=== PATIENT | female | born 1945 | race Caucasian/White ===

== ENCOUNTER 2018-09-30 11:36 | Inpatient (IN) | payer OTHER ==
[~2018-09-30] VITALS: Ht 157.5 cm; Wt 76.2 kg
[~2018-09-30 11:36] MED LIST: AMLODIPINE BESY10 MG; ASPIRIN EC81 M1; CALCIUM 500 +1 EAC5; CLONAZEPAM 0.50.5 M1 PO; FISH OIL 1,0001 EAC7; FOLIC ACID 40400 MC1; HYDROCHLOROTHIA25 M1; LISINOPRIL20 MG; MOBIC15 MG; OXYCONTIN CR 2020 M1; SERTRALINE HCL100 MG PO; SIMVASTATIN40 MG
[2018-09-30] MEDS ORDERED: ATORVASTATIN CA40 MG PO (12:01)
[2018-09-30] MEDS ORDERED: VITAMIN D1000 UNI1 PO (12:02)
[2018-09-30] MEDS ORDERED: VITAMIN B-12500 MCG PO (12:03)
[2018-09-30] MEDS ORDERED: ELIQUIS5 MG PO (12:03)
[2018-09-30] MEDS ORDERED: CILOSTAZOL 100100 M1 PO (12:03)
[2018-09-30] MEDS ORDERED: DILTIAZEM HCL90 MG PO (12:04)
[2018-09-30] MEDS ORDERED: NEURONTIN 400400 M1 PO (12:05)
[2018-09-30] MEDS ORDERED: COLACE100 MG PO (12:05)
[2018-09-30] MEDS ORDERED: FOLIC ACID 40400 MC1 PO (12:05)
[2018-09-30] MEDS ORDERED: COZAAR 25 MG TA25 M2 PO (12:06)
[2018-09-30] MEDS ORDERED: DEMADEX20 MG PO (12:06)
[2018-09-30] MEDS ORDERED: POTASSIUM20 PO (12:06)
[2018-09-30] MEDS ORDERED: OXYBUTYNIN 5 MG5 M2 PO (12:06)
[2018-09-30] MEDS ORDERED: TRAMADOL 50 MG50 MG PO (12:07)
[2018-09-30 12:42] LABS: ABSOLUTE BASOPHILS 0.1 thou/uL (0.0-0.2); ABSOLUTE EOSINOPHILS 0.2 thou/uL (0.0-0.7); ABSOLUTE LYMPHOCYTES 1.2 thou/uL (0.8-5.3); ABSOLUTE MONOCYTES 0.9 thou/uL (0.0-1.2); ABSOLUTE NEUTROPHILS 7.3 thou/uL (1.6-8.1); BASOPHILS 0.7 %; EOSINOPHILS 2.5 %; HEMATOCRIT 31.7 % (37.0-47.0); HEMOGLOBIN 10.2 gm/dL (12.0-15.0); LYMPHOCYTES 12.2 %; MCH 28.2 pg (26.0-34.0); MCHC 32.3 g/dL (28.0-37.0); MCV 87.1 fL (80.0-100.0); MONOCYTES 8.8 %; MPV 7.4 fl. (7.2-11.1); NUCLEATED RBCS 0 /100WBC; PLATELET COUNT* 432 thou/uL (150-400); POLYS 75.8 %; RBC 3.64 mil/uL (4.20-5.00); RDW-CV 15.8 % (10.5-14.5); WBC 9.7 thou/uL (4.0-11.0)
[2018-09-30 13:04] LABS: APTT 30.9 Seconds (25.0-31.3); INR 1.1; PROTIME 11.4 Seconds (9.20-11.50)
[2018-09-30 13:21] LABS: ANION GAP 12 mmol/L (7-16); BUN 12 mg/dL (7-18); CALCIUM 8.8 mg/dL (8.5-10.1); CHLORIDE 103 mmol/L (98-107); CO2 26 mmol/L (21-32); GLUCOSE 107 mg/dL (70-99); POTASSIUM 3.3 mmol/L (3.5-5.1); SODIUM 141 mmol/L (136-145)
[2018-09-30 13:25] LABS: ALBUMIN 3.8 g/dL (3.4-5.0); ALKALINE PHOSPHATASE 137 U/L (46-116); LIPASE 50 U/L (73-393); NT-PRO BRAIN NAT PEPTIDE 324 pg/mL (<300); SGOT 18 U/L (15-37); SGPT 18 U/L (30-65); TOTAL BILIRUBIN 0.6 mg/dL (<0.1-1.0); TOTAL PROTEIN 7.2 g/dL (6.4-8.2); TROPONIN-I LEVEL <0.06 ng/mL (<0.06)
[2018-09-30 18:26] VITALS: BP 142/46
[2018-09-30 19:10] LABS: URIC ACID* 6.9 mg/dL (2.6-7.2)
[2018-09-30 20:00] VITALS: BP 119/35
[2018-10-01] VITALS: BP 156/63
[2018-10-01 04:00] VITALS: BP 146/62
[2018-10-01 05:38] LABS: HEMATOCRIT 33.9 % (37.0-47.0); HEMOGLOBIN 10.8 gm/dL (12.0-15.0); MCH 27.8 pg (26.0-34.0); MCHC 31.7 g/dL (28.0-37.0); MCV 87.6 fL (80.0-100.0); MPV 8.2 fl. (7.2-11.1); NUCLEATED RBCS 0 /100WBC; PLATELET COUNT* 503 thou/uL (150-400); RBC 3.88 mil/uL (4.20-5.00)
[2018-10-01 05:54] LABS: ANION GAP 14 mmol/L (7-16); BUN 15 mg/dL (7-18); CALCIUM 8.9 mg/dL (8.5-10.1); CHLORIDE 103 mmol/L (98-107); CO2 25 mmol/L (21-32); CREATININE 0.9 mg/dL (0.6-1.3); GLUCOSE 205 mg/dL (70-99); MAGNESIUM 2.1 mg/dL (1.8-2.4); POTASSIUM 3.2 mmol/L (3.5-5.1); SODIUM 142 mmol/L (136-145); TROPONIN-I LEVEL <0.06 ng/mL (<0.06)
[2018-10-01 06:33] LABS: ABSOLUTE LYMPHOCYTES 1.2 thou/uL (0.8-5.3); ABSOLUTE MONOCYTES 0.1 thou/uL (0.0-1.2); ABSOLUTE NEUTROPHILS 11.7 thou/uL (1.6-8.1); ANISOCYTOSIS 1+; PLATELET ESTIMATE INCREASED; POIKILOCYTOSIS 1+; POLYCHROMASIA 1+
[2018-10-01 07:04] LABS: BE -2.3 mmol/L (-2 to +3); HCO3 21.4 mmol/L (22.0-26.0)
[2018-10-01 08:30] VITALS: BP 143/100
--- NOTE | 2018-10-01 11:20 | EKG ---
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: : 1945 Requested By: Nay Medrano Order Number: [id number] MD: Carlos Brown Measurements Intervals [place] Rate: 70 P: 69 MD: 162 QRS: -11 QRSD: 146 T: 101 QT: 472 QTc: 510 Interpretive Statements Sinus rhythm Paired ventricular premature complexes IVCD, consider atypical LBBB Baseline wander in lead(s) V5 Compared to ECG 09/10/2008 13:04:00 Ventricular premature complex(es) now present Atrial abnormality no longer present ST (T wave) deviation no longer present Electronically Signed On 10-01-2018 11:20:26 PRODUCT ENGINEER by Carlos Brown [email or web address] <ELECTRONICALLY SIGNED> By: Carlos Brown MD, FACC 10/01/18 1120 1153 1153 Carlos Brown MD, FACC /EPI
--- NOTE | 2018-10-01 11:20 | EKG ---
[place] [address] ELECTROCARDIOGRAM REPORT Name: JOE MORALES Room: [address] ADM IN M.R.#: [id number] Admission: 09/30/18 Attend Phys: Yefri Berry Discharge: Date of : 41 Report #: [id number] THIS REPORT FOR: //name// [facility] ED Test Date: 2018-09-30 Test Time: 12:01:53 Pat Name: JOE MORALES Department: Room: [facility] Gender: F Inverted Block Operator: : 1945 Requested By: Nay Medrano Order Number: [id number] Reading MD: Carlos Brown Measurements Intervals [place] Rate: 67 P: 81 MS: 153 QRS: 0 QRSD: 148 T: 77 QT: 479 QTc: 506 Interpretive Statements Sinus rhythm Nonspecific intraventricular conduction delay Anterior infarct, old Compared to ECG 09/10/2008 13:04:00 Intraventricular conduction delay now present Myocardial infarct finding now present Atrial abnormality no longer present ST (T wave) deviation no longer present Electronically Signed On 10-01-2018 11:20:30 DERMATOPATHOLOGIST by Carlos Brown [email or web address] <ELECTRONICALLY SIGNED> By: Carlos Brown MD, FACC 10/01/18 1120 1201 1201 Carlos Brown MD, FACC /EPI
--- NOTE | 2018-10-01 11:21 | EKG ---
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 : 1945 Requested By: Nay Medrano Order Number: [id number] MD: Carlos Brown Measurements Intervals [place] Rate: 73 P: 97 OR: 169 QRS: 4 QRSD: 147 T: 158 QT: 453 QTc: 500 Interpretive Statements Sinus tachycardia Multiform ventricular premature complexes IVCD, consider atypical LBBB Artifact in lead(s) II,aVR,aVF,V1,V3,V4,V5,V6 and baseline wander in lead(s) V3 Compared to ECG 09/10/2008 13:04:00 Ventricular premature complex(es) now present Sinus rhythm no longer present Atrial abnormality no longer present ST (T wave) deviation no longer present Electronically Signed On 10-01-2018 11:21:10 DISTANCE EDUCATION DIRECTOR by Carlos Brown [email or web address] <ELECTRONICALLY SIGNED> By: Carlos Brown MD, [facility] 10/01/18 1121 1523 1523 Carlos Brown MD, [facility] /EPI
--- NOTE | 2018-10-01 11:22 | EKG ---
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: WOO : 1945 Requested By: Becky Vinson Order Number: [id number] Reading MD: Carlos Brown Measurements Intervals [place] Rate: 130 P: MO: QRS: 26 QRSD: 146 T: 208 QT: 355 QTc: 522 Interpretive Statements Atrial fibrillation LVH with secondary repolarization abnormality Anterior infarct, acute (LAD) Prolonged QT interval Compared to ECG 09/10/2008 13:04:00 Left ventricular hypertrophy now present Early repolarization now present Myocardial infarct finding now present Prolonged QT interval now present Sinus rhythm no longer present Atrial abnormality no longer present ST (T wave) deviation no longer present Electronically Signed On 10-01-2018 11:22:02 PET CREMATORY WORKER by Carlos Brown [email or web address] <ELECTRONICALLY SIGNED> By: Carlos Brown MD, [facility] 10/01/18 1122 0429 0429 Carlos Brown MD, FACC /EPI
[2018-10-01 11:24] VITALS: BP 141/39
--- NOTE | 2018-10-01 14:28 | 2DMMODE ---
[place] [address] 2 D/M-MODE ECHOCARDIOGRAM Name: ANDREWJOE Room: [address] ADM IN [facility]#: [id number] Admission: 09/30/18 Attend Phys: Becky Vinson Discharge: Date of : 41 Date of Service: 10/01/18 1427 Report #: [id number] THIS REPORT FOR: //name// APPROVED REPORT Study performed: 10/01/2018 11:29:37 EXAM: Comprehensive 2D, Doppler, and color-flow Echocardiogram Patient Location: In-Patient Room #: [facility] Status: routine BSA: 1.85 HR: 81 bpm BP: 143/100 mmHg Rhythm: NSR Other Information Study Quality: Good Indications systolic heart failure 2D Dimensions IVSd: 13.95 (7-11mm) LVOT Diam: 19.20 (18-24mm) LVDd: 40.42 mm PWd: 9.64 (7-11mm) Ascending Ao: 31.91 (22-36mm) LVDs: 22.07 (25-40mm) Aortic Root: 26.80 mm Volumes Left Atrial Volume (Systole) LA ESV Index: 44.50 mL/m2 Aortic Valve AoV Peak Pako.: 2.37 m/s AO Peak Gr.: 22.44 mmHg LVOT Max P.74 mmHg AO Mean Gr.: 13.09 mmHg LVOT Mean P.14 mmHg LVOT Max V: 1.39 m/s AO V2 VTI: 48.85 cm LVOT Mean V: 0.94 m/s JONATHAN (VTI): 2.03 cm2 LVOT V1 VTI: 34.19 cm Mitral Valve MV Mean Gr.: 8.47 mmHg E/A Ratio: 0.96 MV Decel. Time: 431.75 ms MV E Max Pako.: 1.88 m/[place] [address] 2 D/M-MODE ECHOCARDIOGRAM Name: DANIELLE MORALESE Room: [address] IN .R.#: [id number] Admission: 09/30/18 Attend Phys: Becky Vinson Discharge: Date of : 41 Date of Service: 10/01/18 1427 Report #: [id number] MV PHT: 125.21 ms MVA (PHT): 1.76 cm2 TDI E/Lateral E': 23.50 E/Medial E': 26.86 Medial E' Pako.: 0.07 m/s Lateral E' Pako.: 0.08 m/s Pulmonary Valve PV Peak Pako.: 1.63 m/s PV Peak Gr.: 10.57 mmHg Tricuspid Valve RAP Estimate: 5.00 mmHg TR Peak Gr.: 49.98 mmHg RVSP: 55.00 mmHg PA Pressure: 55.00 mmHg Left Ventricle The left ventricle is normal size. There is normal LV segmental wall motion. Mild concentric left ventricular hypertrophy. Left ventricular systolic function is normal. The left ventricular ejection fraction is within the normal range. LVEF is 60-65%. Grade I - abnormal relaxation pattern. Right Ventricle The right ventricle is normal size. The right ventricular systolic function is normal. Atria Left atrium is severely dilated. The right atrium size is normal. Aortic Valve Mild aortic valve sclerosis. Trace aortic regurgitation. There is no aortic valvular stenosis. Mitral Valve Mitral valve leaflets are thickened. Mitral valve leaflets have restricted excursion. Mild mitral regurgitation. Moderate mitral stenosis.mean gradient 8.5mmHg Tricuspid Valve The tricuspid valve is normal in structure. Mild tricuspid regurgitation. Moderate pulmonary hypertension. Pulmonic Valve The pulmonary valve is normal in structure[place] [address] 2 D/M-MODE ECHOCARDIOGRAM Name: JOE MORALES Room: [address] IN ..#: [id number] Admission: 09/30/18 Attend Phys: Becky Vinson Discharge: Date of : 41 Date of Service: 10/01/18 1427 Report #: [id number] regurgitation. Great Vessels The aortic root is normal in size. IVC is normal in size and collapses >50% with inspiration. Pericardium There is no pericardial effusion. <Conclusion> Mild concentric left ventricular hypertrophy. LVEF is 60-65%. There is normal LV segmental wall motion. Left atrium is severely dilated. Mitral valve leaflets are thickened. Mitral valve leaflets have restricted excursion. Moderate mitral stenosis.mean gradient 8.5mmHg Mild mitral regurgitation. Mild aortic valve sclerosis. There is no aortic valvular stenosis. <ELECTRONICALLY SIGNED> By: Carlos Brown MD, FACC 10/01/18 1427 1427 142 Carlos Brown MD, FACC /INF
[2018-10-01 16:00] VITALS: BP 122/68
[2018-10-01 19:30] VITALS: BP 145/56
[2018-10-02] VITALS: BP 121/42
[2018-10-02 02:06] LABS: GLYCOHEMOGLOBIN (HGB A1C) 5.8 % (4.8-5.6)
[2018-10-02 04:00] VITALS: BP 122/51
--- NOTE | 2018-10-02 06:49 | CON ---
[address] [address] CONSULTATION Name: JOE MORALES Room: [address] ADM IN M.R.#: [id number] Admission: 09/30/18 Attend Phys: Yefri Berry Discharge: Date of : 41 Report #: [id number] THIS REPORT FOR: //name// CC: Becky Vinson [facility] DATE OF SERVICE: 10/01/2018 PRIMARY CARE PHYSICIAN: Becky Vinson MD CHIEF COMPLAINT: Weakness, fatigue, a-fib, shortness of breath. HISTORY OF PRESENT ILLNESS: The patient is a 73-year-old woman with multiple medical problems, presents with cough, weakness, fatigue, increasing dyspnea over the last several weeks. She has history of prior coronary artery disease and atrial fibrillation treated at [facility]. We have obtained some records. Clinically, she is without significant chest pain or pressure and initial cardiac troponin levels are unremarkable. She has been going in and out of atrial fibrillation with controlled ventricular responses on an IV Cardizem drip. Most recently, she has seen a field research associate at [facility] and her Cardizem apparently was increased to 360 mg daily. She has been anticoagulated with Eliquis for several months, she was diagnosed in 2016. Postoperatively, she had complications following back surgery including an [facility] and diagnosis of atrial fibrillation. Her LV function status is a severe LV function assessment is pending. Records are not available and her echocardiogram has not yet been performed. She had a CT scan of her chest in regards to her shortness of breath, which was negative for pulmonary embolus. She has been compliant with her anticoagulation, but admits that her diet has been fairly poor over the last several days. PAST MEDICAL HISTORY: In 2016, she was diagnosed with coronary artery disease and congestive heart failure and had a non-STEMI. Apparently, she was revascularized. Records are pending from this. She has hyperlipidemia, hypertension, atrial fibrillation, which is paroxysmal. Peripheral vascular disease. She has a history of carotid stenosis in the moderate range in the 50%-75% on the right side and also peripheral vascular disease in her iliac arteries, also in the moderate range. She has been placed on Pletal and is followed by vascular surgery at [facility] for this. [place] [address] CONSULTATION Name: JOE MORALES Room: [address] IN [facility]#: [id number] Admission: 09/30/18 Attend Phys: Yefri Berry Discharge: Date of : 41 Report #: [id number] of TIA. SOCIAL HISTORY: She is a former smoker of more than 2 packs per day, but has been off cigarettes for more than a year. HOME MEDICATIONS: Include the following: Clonazepam, sertraline, aspirin 81 mg daily, atorvastatin 40 mg daily, apixaban 5 mg p.o. b.i.d., Pletal 100 mg p.o. b.i.d., Cardizem 360 mg daily, oxybutynin, potassium chloride 20 mEq daily, torsemide 20 mg p.o. b.i.d., losartan 25 mg p.o. b.i.d. and tramadol. REVIEW OF SYSTEMS: GENERAL: No fevers or chills. Positive weakness. PULMONARY: Positive cough, positive shortness of breath. CARDIOVASCULAR: Positive shortness of breath with activity. Positive orthopnea, no PND, no edema. GENITOURINARY: No dysuria or hematuria. GASTROINTESTINAL: No abdominal pain. No hematemesis or melena. SKIN: No rashes. NEUROLOGIC: Denies headaches, blurry vision or seizures, numbness or visual changes. PHYSICAL EXAMINATION: VITAL SIGNS: Blood pressure is 197/76, pulse is 125. O2 sat on 4 L is 95%. GENERAL: This is an elderly female. She is a poor historian. She is in no apparent distress. HEENT: Eyes: EOMs intact. No facial asymmetry. NECK: Supple. No jugular venous distention. There is a faint right-sided bruit. CARDIOVASCULAR: Regular with faint systolic murmur. There is no rub or gallop. LUNGS: Coarse breath sounds bilaterally in the bases. ABDOMEN: Nontender, nondistended. EXTREMITIES: No peripheral edema. NEUROLOGY: There are no focal deficits. PULSES: Radial pulses normal. Dorsalis pedis pulses are reduced, +1 bilaterally. DIAGNOSTIC DATA: Electrocardiograms demonstrate atrial fibrillation, controlled ventricular response in the 70s. There is a bundle-branch block, conduction delay and intermittently, she has been in atrial fibrillation with a controlled ventricular response. Underlying rhythm though on presentation was sinus rhythm. LABORATORY DATA: Hemoglobin is 10.8, white blood count is 13.0, platelet count is 503,000. Sodium is 142, potassium is 3.2, chloride is 103, CO2 is 25, BUN is 15, creatinine is 0.9. Troponin-I is 0.06. BNP is 880, [place]R [place] 1.1. [place] [address] CONSULTATION Name: JOE MORALES Room: [address] IN [facility]#: [id number] Admission: 09/30/18 Attend Phys: Yefri Berry Discharge: Date of : 41 Report #: [id number] IMAGING DATA: CTA of the chest showed no evidence of pulmonary embolus, increasing thickening and ground glass opacities, increasing pleural effusion consistent with CHF. No evidence of acute pulmonary embolism. IMPRESSION: 1. Acute respiratory insufficiency. I think this is a combination of chronic obstructive pulmonary disease exacerbation, possibly with bronchitis along with congestive heart failure exacerbation, probably of a diastolic etiology based on her BNP level. I would continue with diuresis. She will need more aggressive blood pressure control. 2. Acute congestive heart failure as noted above. Continue diuretics and blood pressure management. 3. Paroxysmal atrial fibrillation. We will try to obtain records from [facility]. An echocardiogram is pending. If her left ventricular function is normal, she may be a candidate for sotalol, as she had significant complaints of palpitation type symptoms, likely her recurrence of atrial fibrillation as an outpatient, although her heart rates are fairly well controlled, currently in a sinus rhythm on IV Cardizem. 4. Oral anticoagulation. I would continue with Eliquis, as she has an elevated CHADS-VASc score of 5+ given her vascular disease, coronary history, prior transient ischemic attack etc. 5. Chronic obstructive pulmonary disease exacerbation. We will treat this aggressively. 6. Coronary artery disease. Her cardiac troponin level is normal and I do not think that she is having an active angina. I will continue medical therapy. We will obtain records from [facility]. <ELECTRONICALLY SIGNED> By: Noble Mar MD, FACC 10/02/18 0649 1000 [id number] Brown MD, FACC /nt
--- NOTE | 2018-10-02 07:43 | CON ---
[address] [address] CONSULTATION Name: DAVID MORALESANNE Room: [address] ADM IN M.R.#: [id number] Admission: 09/30/18 Attend Phys: Nicola Berry Discharge: Date of : 41 Report #: [id number] THIS REPORT FOR: //name// CC: Becky Whitlockriley Hernandeznicola REASON FOR CONSULTATION: Respiratory failure. HISTORY OF PRESENT ILLNESS: This is a 73-year-old female patient with history of smoking for almost 40 years, although she quit a while ago. She saw a correction officer penitentiary couple of years ago after she had been through long hospitalization. At one point, she was on inhalers, but now she is not on any inhaler or oxygen. We have PFTs at [facility] done in April 2016 showed evidence of COPD in the range of dntllnfb-bt-relgia obstructive defect. The patient also had history of congestive heart failure. She presented to the hospital with a month history of progressive shortness of breath mostly with exertion associated with weakness and she has noticed that this has been progressive over the course of the month. She noticed also some increasing lower extremity edema. Her daughter is a nurse and reported that she has history of orthopnea, although typically she does sleep lying flat, but she noticed any time she tries to lay flat that she is more short of breath than her baseline. She has cough, which is nonproductive, not producing any sputum. She denied any sick contact. She denied any chest pain, fever, chills, night sweats, abdominal pain. She has history of coronary artery disease and actually she follows a proposal review analyst at [facility]. In addition to that, she has history of pulmonary nodule that had been monitored since 2016 per her primary care doctor and proposal review analyst according to the patient and things have been stable since then. It was noted overnight she was on BiPAP; however, this morning, she is on 4 liter oxygen. She looks uncomfortable and reported some improvement. The edema in the lower extremities has improved. ALLERGIES: MEPERIDINE, MORPHINE, OPIOIDS, SULFA. HOME MEDICATIONS: She is on clonazepam, sertraline, aspirin, atorvastatin. She is on Eliquis for AFib. She is on Colace, gabapentin, folic acid, tramadol, losartan and Demadex. PAST MEDICAL HISTORY: She had history of hypertension, AFib on anticoagulation. She has history of arthritis, history of anxiety, history of congestive heart failure, coronary artery disease, back problems, TIA x 2, depression. Also, there is COPD given history of smoking and abnormal PFT back in 2016 at [facility], although the patient was not aware of such diagnosis. PAST SURGICAL HISTORY: Knee surgery on the left, , ovarian cyst removal [place] [address] CONSULTATION Name: JOE MORALES Room: [address] ADM IN M.R.#: [id number] Admission: 09/30/18 Attend Phys: Nicola Berry Discharge: Date of : 41 Report #: [id number] SOCIAL HISTORY: He smoked for 40 years and quit a few years ago. Does not drink alcohol excessively, does not abuse drugs. REVIEW OF SYSTEMS: Twelve systems reviewed with the patient and negative other than those mentioned above. Pertinent positive mentioned in the history. PHYSICAL EXAMINATION: VITAL SIGNS: On examination, during my visit she was on 4 L oxygen with saturation more than 90%, blood pressure 140/48, pulse rate of 71, temperature 37.2. GENERAL: Sitting in a chair, speaking in full sentences, no distress. Awake, alert. HEAD: Normocephalic, atraumatic. EYES: Pupils reactive to light. ORAL CAVITY: Moist mucous membrane. Mallampati of 2. NECK: Supple. No palpable lymph nodes. No palpable thyroid. Trachea is central. External ear looks healthy and normal. Nasal cavity, patent passages. CHEST: Diminished air movement bilaterally. No definite wheezes. HEART: S1, S2, no murmur. ABDOMEN: Benign, soft, lax, nontender, positive bowel sounds. EXTREMITIES: Lower extremity, trace edema, no calf tenderness. SKIN: Normal for age and race, no rash. LYMPHATICS: No palpable lymph node. PSYCHIATRIC: Mood and affect appropriate. Good insight and judgment. NEUROLOGIC: Awake, alert. Moving 4 extremities spontaneously. LYMPHATICS: No palpable lymph nodes. LABORATORY DATA: White blood count 9.7, hemoglobin 10.2, platelet 432. ABG 7.43/33/70. That was done on BiPAP. Her INR is 1.1. D-dimer was elevated. Her potassium was 3.2 with creatinine of 0.9. Her BNP also was elevated at 880. Respiratory virus panel is pending. Upon hospitalization, the initial chest x-ray did not show major abnormality, but there is some obliteration of the costophrenic angle; however, there is evidence of edema increased on the repeat chest x-ray. She had a CT of the chest that did not show pulmonary embolus, but showed cardiomegaly with signs of vascular congestion and ground glass infiltrate. Her mediastinal hilar lymphadenopathy reported to be slightly prominent compared to 2016. However, the patient told me she has been monitored with repeat CT scan as an outpatient. IMPRESSION: 1. Acute hypoxic respiratory failure. 2. Congestive heart failure. 3. Fluid overload. 4. Pulmonary infiltrate. 5. Chronic obstructive [place] [address] CONSULTATION Name: JOE MORALES Room: [address] ADM IN M.R.#: [id number] Admission: 09/30/18 Attend Phys: Nicola Berry Discharge: Date of : 41 Report #: [id number] At this point, the patient is being diuresed and she is already reporting improvement in the breathing and the lower extremity edema. I would continue diuresis. She does not like bronchodilators because it makes her "jittery," so we will keep it p.r.n. However, she agreed to be started on p.o. steroids, which I will do. With the pulmonary infiltrates, we cannot rule out pneumonia. I agree with antibiotics at this point. Infectious Disease was consulted. I suspect her respiratory failure is multifactorial, mostly fluid overload and congestive heart failure, but infectious process could not be ruled out. Also, she has COPD based on the previous PFTs. Regarding mediastinal lymphadenopathy, the patient told me she had repeat CT scan done by her primary care doctor and proposal review analyst and she has been told that "the nodules in her lungs had been stable." I do not have those reports of the CTs between 2016 and now; however, we would recommend continued surveillance. Thank you for the consult. We will follow along with you. <ELECTRONICALLY SIGNED> By: Angela Armstrong MD 10/02/18 0743 1230 0200Devin Lindsay MD /nt
[2018-10-02 07:49] VITALS: BP 149/48
[2018-10-02 11:30] VITALS: BP 134/43
--- NOTE | 2018-10-02 11:51 | CON ---
[address] [address] CONSULTATION Name: MORALESJOE Room: [address] ADM IN M.R.#: [id number] Admission: 09/30/18 Attend Phys: Yefri eBrry Discharge: Date of : 41 Report #: [id number] THIS REPORT FOR: //name// CC: Becky Vinson [facility] DATE OF SERVICE: 10/01/2018 INFECTIOUS DISEASE CONSULTATION ATTENDING PHYSICIAN: Becky Vinson MD. REASON FOR EVALUATION: Pneumonitis, perhaps multifactorial. HISTORY OF PRESENT ILLNESS: Chart reviewed, patient examined. This is a 73-year-old with known history of coronary artery disease, also has pulmonary hypertension. Over the course of the last 6-8 weeks, she had developed progressive dyspnea, which accelerated over the course of the last few days with evidence of decreased exercise tolerance, became very dyspneic, had to stop and rest after just a short distance, had been evaluated as an outpatient, some question whether she received antibiotic since she does have history of bronchitis. However, because of her deterioration, she was admitted. Imaging suggested bilateral infiltrates, possible congestive heart failure/pulmonary edema, could not exclude pneumonitis. On questioning, she denies any fevers or chills. She had one night of sweats. Appetite has been good. Actually she has gained weight in part attributes to retaining fluid. She has not had significant gastrointestinal-related complaints including nausea, vomiting or diarrhea. She noted some lower extremity edema. She was empirically started on levofloxacin as well as diuretics. Clinically, she has improved over the course of the last 12 hours since her admission. ALLERGIES: SULFA, OPIOIDS, MORPHINE, BACTRIM, MEPERIDINE. CURRENT MEDICATIONS: Include diphenhydramine, levofloxacin 500 IV daily, diltiazem, oxybutynin, gabapentin, cilostazol, apixaban, multivitamin, ipratropium and albuterol inhaler, furosemide, potassium, diltiazem, cyanocobalamin, cholecalciferol, atorvastatin, aspirin, sertraline, tramadol, clonidine. PAST MEDICAL HISTORY: As described above hypertension, history of coronary artery disease, congestive heart failure with cardiomyopathy, anxiety, depression, arthritis, spinal fusion, peripheral vascular disease, bladder stimulator. SOCIAL HISTORY: Former smoker. No ethanol, [place] [address] CONSULTATION Name: JOE MORALES Room: [address] IN [facility].#: [id number] Admission: 09/30/18 Attend Phys: Yefri Berry Discharge: Date of : 41 Report #: [id number] FAMILY HISTORY: Noncontributory. REVIEW OF SYSTEMS: Denies any visual disturbances. Remainder of 10 point review of systems is unremarkable with the exception of the above. PHYSICAL EXAMINATION: GENERAL: She is alert, cooperative, appropriate, in mild distress. She is not encephalopathic, appears to be generally reasonably nourished. VITAL SIGNS: Temperature 98.1, pulse 125, respirations 16, blood pressure 197/76. SKIN: Warm, dry, no rashes. HEENT: No conjunctivitis. Oropharynx without lesion. NECK: Supple. LUNGS: Bilateral rales. HEART: Regular. She does have a soft systolic murmur. ABDOMEN: Soft, nontender, nondistended. There are no organomegalies. EXTREMITIES: Distal lower extremities, no edema. GENITOURINARY: Deferred. RECTAL: Deferred. LABORATORY DATA: Blood cultures sterile thus far. Most recent ABG from this morning, pH 7.430, pCO2 of 33.0, pO2 of 70.0 that was on FiO2 of 40% with the BiPAP. She is now on nasal cannula oxygen. CBC: White count of 13.0, H and H 10.8 and 33.9, platelets of 503 with neutrophilia; proBNP of 880. Chest x-ray, cardiomegaly with interstitial infiltrates and edema, small bilateral pleural effusions. Electrolytes: Sodium 142, potassium 3.2, chloride 103, bicarb 25, anion gap of 14, BUN and creatinine 15 and 0.9, estimated GFR of ____. TSH of 1.471. Ferritin of 12. Sed rate of 19. Uric acid of 6.9. LDH of 365. Lactic acid of 0.9. CTA chest PE protocol, no evidence of pulmonary embolus, septal thickening and ground glass opacities both lungs with effusions, cardiomegaly consistent with congestive heart failure and pulmonary edema, hilar mediastinal lymphadenopathy. Liver function tests otherwise unremarkable. Albumin of 3.8. Total protein 7.2. Estimated GFR of ____. PT of 11.4, INR of 1.1. ASSESSMENT: Pneumonitis, likely multifactorial. Certainly a component of vascular congestion can entirely exclude pneumonitis. I think it is reasonable to continue empiric antimicrobial therapy, Levaquin, is good agent for community-acquired pneumonia. The sputum is forthcoming at this point and see how she responds to this dual approach of diuresis as well. I think likely early transition to oral antibiotic would be reasonable. Did discuss with the patient and her family. <ELECTRONICALLY SIGNED> By: Micky Clemente MD 10/02/18 1151 [id number] [id number] Clemente MD /andrew
[2018-10-02 15:30] VITALS: BP 118/57
[2018-10-02 19:30] VITALS: BP 150/51
[2018-10-03] VITALS: BP 131/40
[2018-10-03 04:00] VITALS: BP 148/60
[2018-10-03 07:40] VITALS: BP 152/46
[2018-10-03] MEDS ORDERED: VENTOLIN HFA INH8 GM INH (08:26)
[2018-10-03] MEDS ORDERED: PREDNISONE 10 M10 MG PO (08:26)
[2018-10-03] MEDS ORDERED: LEVAQUIN 750 M750 MG PO (08:26)
[2018-10-03] MEDS ORDERED: SORINE 80 MG TA80 M1 PO (08:26)
[2018-10-03 12:00] VITALS: BP 105/34
[2018-10-03 16:49] VITALS: BP 126/60
--- NOTE | 2018-10-03 17:30 | EKG ---
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: : 1945 Requested By: Sandip Peter Order Number: [id number] Reading MD: Noble Mar Measurements Intervals [place] Rate: 45 P: 64 [place]: 178 QRS: 23 QRSD: 117 T: 114 QT: 519 QTc: 450 Interpretive Statements Sinus bradycardia Abnrm T, consider ischemia, anterolateral leads Compared to previous EKG Possible ischemia now present Atrial fibrillation no longer present Left ventricular hypertrophy no longer present Early repolarization no longer present Myocardial infarct finding no longer present Prolonged QT interval no longer present Electronically Signed On 10-03-2018 17:29:44 SELF STORAGE MANAGER by Noble Mar [email or web address] <ELECTRONICALLY SIGNED> By: Noble Mar MD, FACC 10/03/18 1729 0804 [id number] Noble Mar MD, FAC /EPI
[2018-10-03 20:30] VITALS: BP 169/57
[2018-10-04] VITALS: BP 154/52
[2018-10-04 04:00] VITALS: BP 146/42
[2018-10-04 05:12] LABS: ADENOVIRUS Negative (Negative); INFLUENZA A Negative (Negative); INFLUENZA B Negative (Negative); METAPNEUMOVIRUS Negative (Negative); PARAINFLUENZA 1 Negative (Negative); PARAINFLUENZA 2 Negative (Negative); PARAINFLUENZA 3 Negative (Negative); RHINOVIRUS Negative (Negative); RSV A Negative (Negative); RSV B Negative (Negative)
[2018-10-04 08:00] VITALS: BP 147/52
[2018-10-04] MEDS ORDERED: CEFUROXIME500 MG PO (08:13)
[2018-10-04] MEDS ORDERED: METFORMIN HCL500 MG PO (08:16)
[2018-10-04 08:28] VITALS: BP 146/42
[2018-10-04 12:29] VITALS: BP 118/62
--- NOTE | 2018-10-04 12:31 | EKG ---
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1945 Requested By: Sandip Peter Order Number: [id number] Lea MD: Sandip Peter Measurements Intervals [place] Rate: 53 P: 83 MS: 165 QRS: 38 QRSD: 143 T: 54 QT: 527 QTc: 495 Interpretive Statements Sinus bradycardia Left bundle branch block Compared to ECG 10/03/2018 08:04:31 rate increased Prolonged QT interval no longer present Electronically Signed On 10-04-2018 12:31:19 ELECTRICAL FITTER by Sandip Peter [email or web address] <ELECTRONICALLY SIGNED> By: Sandip Peter MD, [facility] 10/04/18 1231 [id number] [id number] Sandip Peter MD, [facility] /EPI
[2018-10-04 14:22] VITALS: BP 146/42
[2018-10-04] MEDS ORDERED: SORINE 80 MG TA80 M1 PO (15:00)
--- NOTE | 2018-10-12 15:44 | CON ---
[address] [address] CONSULTATION Name: ANDREWJOE Room: [address] IN M.R.#: [id number] Admission: 09/30/18 Attend Phys: Yefri Berry Discharge: 10/04/18 Date of : 41 Report #: [id number] THIS REPORT FOR: //name// CC: Becky Vinson [facility] DATE OF SERVICE: 10/01/2018 HISTORY OF PRESENT ILLNESS: This 73-year-old female patient who was evaluated by me for ataxia. This patient is admitted with multiple cardiac, respiratory problems. As far as ataxia is concerned, it started in 2016. She indicated that she underwent lumbar spine surgery because of spinal stenosis. She was having some ataxia before that, but she was in hospital for 3 weeks and she recuperated from the surgery. She noticed that she was having difficulty with walking. That continued. Recently, she has become short of breath and has generalized weakness. She feels it is worst now, but the changes have not been drastic. She has discussed this problem with her spine surgeon. Spine surgeon has raised the possibility that she may be having spinal stenosis in the cervical spine area also. She has not had any imaging study of the spine to confirm that. Imaging study of the spine is going to be difficult because she indicated that they tried to do an MRI, but then they found out that MRI is contraindicated in her case because of the stimulator not being MRI compatible. She has also been diagnosed with peripheral vascular insufficiency in the lower extremities and she is being considered for stent placement. REVIEW OF SYSTEMS: Indicate that she has been diagnosed with carotid stenosis. She said one of the carotid is 80% blocked. I do not have her prior workup. I do not know whether they have done the imaging study of the brain to see if this carotid stenosis is symptomatic or not. She believes she had CT scan of the head in the past, but does not know where and when and what the results were. A 14-point review of system was carried out. She does have some trouble with depression and anxiety. She is on chronic anticoagulation because of atrial fibrillation. She is being worked up for respiratory difficulty now. She is being seen by both Cardiology and Pulmonary. Usually, she goes to [facility] for her medical care and all her records are there. This was her relevant 14-point review of system. PAST MEDICAL HISTORY: Positive for atrial fibrillation, but I do not know what her prior CAT scan has shown. FAMILY HISTORY: Negative for any early age stroke. SOCIAL HISTORY: [place] [address] CONSULTATION Name: JOE MORALES Room: [address] IN M.R.#: [id number] Admission: 09/30/18 Attend Phys: Yefri Berry Discharge: 10/04/18 Date of : 41 Report #: [id number] PHYSICAL EXAMINATION: Indicate that she is alert. She is responsive. She can follow simple commands. Her speech, concentration, fund of knowledge and memory is at her baseline. Cranial nerve examinations 2-12 are unremarkable. It looks like she has reasonable strength in all 4 extremities. Strength is somewhat diminished in both lower extremities symmetrically. Her reflexes are well elicited and to some extent is hyper in the lower extremities. Her position sense is intact. I cannot tell about the plantar. I could not have a good look at the patient's fundus. She is otherwise a well-developed individual. Her hearing and vision looks adequate. She has a history of atrial fibrillation. She does appear to be short of breath, but according to her she is becoming better in that regard. LABORATORY DATA: Her white count is 13 and potassium is low at and glucose is 205. She did not have any imaging study of the brain. IMPRESSION: 1. Longstanding ataxia since 2016. It is most likely related to her spine problems. I agree spine need to be worked up further, especially to look for lesions higher up in the spine because reflexes are well preserved in the lower extremity and to some extent hyper and any lesions in the lumbar spine, which will not explain her symptoms. 2. Carotid stenosis. I am not sure whether it is symptomatic or not. It does not appear to be clinically symptomatic, but it can be symptomatic on the basis of imaging study if we can demonstrate a stroke in the appropriate carotid distribution. 3. Multiple contributing factor to her ambulation difficulty, which include vascular insufficiency, probable some neuropathy, which clinically will not show if the patient has long tract signs from the spinal cord. This patient needs further workup. Workup is not going to be easy because we cannot do an MRI in this patient. I discussed with her that we can do the workup here or she can get it done as an outpatient since the problem is there at 2016. She is not even sure she wants to get the workup done because she indicates that even if they find a spine lesion, she is not going to have surgery. However, if an MRI cannot be done and noncontrast CT of the head is appropriate to do, just look for any lesion in the distribution of the carotid stenosis and anything else, which can cause or contribute to her ambulation difficulty like normal pressure hydrocephalus. She wants to think about it and if she wants to do it, it could be done. More than 50 minutes of time was spent taking care of this patient today and majority of that time was spent counseling the patient on above matter as well as coordinating her care. <ELECTRONICALLY SIGNED> By: Jorge Reyes MD 10/12/18 1544 1503 [id number] Reyes MD /nt
== END 2018-10-04 17:32 | disposition home health service (06) | DRG 193 ==
LOC: M.ERS 11:36 → M.TBA-ER 14:45 → M.2W 14:45
PROVIDERS: Personal Emergency Response Attendant; ADMIT Internal Medicine
PROC: 5A09357 Assistance with Respiratory Ventilation, Less than 24 Consecutive Hours, Continuous Positive Airway Pressure (ICD-10-PCS; principal; 2018-10-01)
DX: J15.9 Unspecified bacterial pneumonia (principal); J96.01 Acute respiratory failure with hypoxia; I42.9 Cardiomyopathy, unspecified; J44.1 Chronic obstructive pulmonary disease with (acute) exacerbation; I50.32 Chronic diastolic (congestive) heart failure; J44.0 Chronic obstructive pulmonary disease with (acute) lower respiratory infection; R65.10 Systemic inflammatory response syndrome (SIRS) of non-infectious origin without acute organ dysfunction; M19.90 Unspecified osteoarthritis, unspecified site; F41.9 Anxiety disorder, unspecified; F32.9 Major depressive disorder, single episode, unspecified; I25.10 Atherosclerotic heart disease of native coronary artery without angina pectoris; I73.9 Peripheral vascular disease, unspecified; I48.91 Unspecified atrial fibrillation; I65.29 Occlusion and stenosis of unspecified carotid artery; I11.0 Hypertensive heart disease with heart failure; I48.0 Paroxysmal atrial fibrillation; E87.6 Hypokalemia; I05.0 Rheumatic mitral stenosis; R59.0 Localized enlarged lymph nodes; E87.70 Fluid overload, unspecified; Z86.73 Personal history of transient ischemic attack (TIA), and cerebral infarction without residual deficits; Z88.6 Allergy status to analgesic agent; Z88.2 Allergy status to sulfonamides; Z88.8 Allergy status to other drugs, medicaments and biological substances; Z87.891 Personal history of nicotine dependence; I25.2 Old myocardial infarction; R73.03 Prediabetes

== ENCOUNTER → 2018-10-16 | Outpatient (CLI) | payer OTHER ==
[~2018-10-16] MED LIST changes: +ATORVASTATIN CA40 MG PO; +CEFUROXIME500 MG PO; +CILOSTAZOL 100100 M1 PO; +COLACE100 MG PO; +COZAAR 25 MG TA25 M2 PO; +DEMADEX20 MG PO; +DILTIAZEM HCL90 MG PO; +ELIQUIS5 MG PO; +FOLIC ACID 40400 MC1 PO; +LEVAQUIN 750 M750 MG PO; +METFORMIN HCL500 MG PO; +NEURONTIN 400400 M1 PO; +OXYBUTYNIN 5 MG5 M2 PO; +POTASSIUM20 PO; +PREDNISONE 10 M10 MG PO; +SORINE 80 MG TA80 M1 PO; +TRAMADOL 50 MG50 MG PO; +VENTOLIN HFA INH8 GM INH; +VITAMIN B-12500 MCG PO; +VITAMIN D1000 UNI1 PO
[2018-10-16 15:49] LABS: CALCIUM 9.2 mg/dL (8.5-10.1); CREATININE 1.3 mg/dL (0.6-1.3); POTASSIUM 4.3 mmol/L (3.5-5.1)
== END ==
LOC: M.LAB 15:19
PROVIDERS: Nurse Practitioner
DX: I11.0 Hypertensive heart disease with heart failure (principal); I50.9 Heart failure, unspecified; Z87.891 Personal history of nicotine dependence

== ENCOUNTER 2018-11-16 10:02 | Inpatient (IN) | payer OTHER ==
[~2018-11-16] VITALS: Ht 157.5 cm; Wt 75.7 kg
--- NOTE | ~2018-11-16 | OP ---
[address] [address] OPERATIVE REPORT Name: JOE MORALES Room: [address] IN M.R.#: [id number] Admission: 11/16/18 Attend Phys: Jarret Taylor, Discharge: Date of : 41 Report #: [id number] THIS REPORT FOR: //name// CC: Dr. Zaid Rae [facility] physician/PCP Jarret Taylor MD DATE OF SERVICE: 11/22/2018 PREOPERATIVE DIAGNOSES: Symptomatic cholelithiasis and umbilical hernia. POSTOPERATIVE DIAGNOSES: Symptomatic cholelithiasis and umbilical hernia. PROCEDURE: Laparoscopic cholecystectomy and and umbilical hernia repair. SURGEON: Emerson Bee DO. [employer]: Bryan Turner DO, PGY-3, resident. SECOND AMMONIUM NITRATE CRYSTALLIZER: Student Dr. Richard Bergeron. ANESTHESIA: General endotracheal. ESTIMATED BLOOD LOSS: Less than 20 mL. COMPLICATIONS: None. REFERRING PHYSICIAN: Jarret Taylor MD. INDICATIONS FOR PROCEDURE: This is a 73-year-old female who presented initially with right upper quadrant abdominal pain. She was found to have cholelithiasis on ultrasound; however, Cardiology clearance was obtained and a carotid duplex was ordered, which showed high-grade stenosis of the patient's right carotid, so she was set up for a right carotid endarterectomy approximately 48 hours ago prior to having her gallbladder removed. She also underwent a cardiac stress test, which was read as normal. DESCRIPTION OF PROCEDURE: After obtaining proper consents and discussing risks and complications with the patient, she was taken to the operating room, laid on the supine position and administered general anesthesia. She was then prepped and draped in the usual fashion. A timeout was performed. We confirmed the appropriate patient and procedure. Preoperative antibiotics had been given. SCDs were in place. We then made a small supraumbilical skin incision with a #11 scalpel blade. This was carried down through [place] [id number] OPERATIVE REPORT Name: JOE MORALES Room: [address] IN [facility].#: [id number] Admission: 11/16/18 Attend Phys: Jarret Taylor, Discharge: Date of : 41 Report #: [id number] tissue using electrocautery for hemostasis. Once within the subcutaneous tissue, we identified the umbilical hernia, which was completely dissected free and detached from the umbilicus. I then opened the hernia sac and identified the fascial defect. The entire hernia sac was excised and passed off as specimen. The hernia defect was approximately 1.5 cm in diameter. We placed 2-0 Prolene sutures in a [id number] fashion and then inserted the Bob 5 mm trocar through the umbilical hernia defect. Once this was done, insufflation was started and once insufflation was complete, full visual inspection of the anterior abdominal organs was performed. This revealed some adhesions along the midline. The gallbladder was distended and appeared atonic. I then placed the patient in reverse Trendelenburg position, rotated her to the left. A 5 mm trocar was placed in the subxiphoid position. Two 5 mm trocars were placed in the right upper quadrant. It was then able to grasp and elevate the gallbladder. We were immediately able to identify Paul's pouch and could easily visualize the cystic duct, common hepatic duct and common bile duct without any dissection at all. I then dissected the hepatoduodenal ligament down using blunt dissection as well as electrocautery. This was down from the gallbladder until I was able to dissect out the cystic duct as it coursed directly into the gallbladder. I then identified the cystic artery, it was also dissected free. We obtained a critical view of safety and then the cystic duct and cystic artery were clipped proximally and distally and then divided. The gallbladder was then removed from the liver bed using electrocautery. Once this was complete, the gallbladder was placed into an Endopouch. We checked the cystic duct and cystic artery stumps for any leak or bleeding and the liver bed as well. We copiously irrigated the right upper quadrant. We then stopped the insufflation. All air was released. The trocars were removed under direct vision. The gallbladder was removed through the umbilical hernia defect. We then closed the umbilical hernia defect using the 2 previously placed 0 Prolene sutures plus 2 additional 0 Prolene sutures. The subcutaneous tissues were then closed using 3-0 Vicryl suture and the n injected with 0.5% Marcaine without epinephrine. The skin incisions were closed using 4-0 Monocryl subcuticular stitches. Mastisol, Steri-Strips, sterile OpSite and pressure dressings were placed. The patient tolerated the procedure well and was awakened in the operating room and transported to recovery room in stable condition. By: 1552 [id number] Bee DO /andrew
--- NOTE | ~2018-11-16 | CON ---
[address] [address] CONSULTATION Name: MORALESJOE Room: [address] IN M.R.#: [id number] Admission: 11/16/18 Attend Phys: Jarret Taylor, Discharge: Date of : 41 Report #: [id number] THIS REPORT FOR: //name// CC: BETTY physician/PCP Jarret Taylor DATE OF SERVICE: 11/17/2018 CARDIOLOGY CONSULTATION HISTORY OF PRESENT ILLNESS: I was asked by Dr. Bee to see this 73-year-old white female in cardiology consultation preoperatively prior to undergoing a cholecystectomy for acute cholecystitis. This lady has an extensive previous cardiac history. She has known paroxysmal atrial fibrillation for which she is anticoagulated with Eliquis and treated with sotalol. She has moderate mitral stenosis with a gradient of 8.5 mm from an echo in September. She has VPCs. She has a rate-related left bundle branch block. She has essential hypertension. She has chronic diastolic heart failure. She has grade 1 diastolic dysfunction on her echo. She has coronary artery disease. She is status post GA in 2014 that was associated with a cardiac arrest. That event occurred within 24-36 hours following back surgery. She also has peripheral artery disease in her lower extremities as well as in her aorta and she has carotid vascular disease that is apparently fairly high grade. She says her right carotid is 80%, she is not sure about her left. She is not sure when she had her last carotid ultrasounds. Fortunately, she is not having issues with chest pain or angina. She has had gallbladder symptoms, which included abdominal pain and back pain radiating into her abdomen for 3 weeks. She has gallstones in the neck of the gallbladder. She is not having any issues with dyspnea on exertion, shortness of breath at rest, orthopnea, PND or edema. She has not had syncope. She does not smoke, but quit 3 years ago. She does have hypercholesterolemia. She does have diabetes, [id number]-ctthiumsq. She does not have renal disease. She does have strong family history of coronary artery disease with her mother, father and sister having coronary artery disease. She has not had any strokes or TIAs. She is not having claudication currently, but has had claudication in the past. She does not have any open or nonhealing wounds. PAST MEDICAL HISTORY: As described above. ALLERGIES: SHE IS ALLERGIC TO OPIOID AGONISTS, SULFA, MEPERIDINE, MORPHINE, SULFISOXAZOLE. HOME MEDICATIONS: Include albuterol, which she was taking when she had pneumonia and some reactive airway disease, that was an inhaler. She is on Eliquis 5 mg b.i.d., atorvastatin 40 mg daily. She was on Ceftin for pneumonia last September, she is not on any further. She takes vitamin D 1000 units daily, Pletal 100 mg b.i.d., clonazepam 0.5 mg p.r.n. b.i.d., vitamin B12 at [address] [place] [address] CONSULTATION Name: JOE MORALES Room: [address] IN .R.#: [id number] Admission: 11/16/18 Attend Phys: Jarret Taylor, Discharge: Date of : 41 Report #: [id number] daily, Colace 100 mg daily, folic acid 400 mg daily, gabapentin for neuropathy 400 mg at bedtime, losartan 25 mg b.i.d., metformin 500 mg b.i.d., oxybutynin 5 mg b.i.d., potassium 20 mEq daily, prednisone p.r.n. in the past and I believe she was only getting that when she had the reactive airway disease with the pneumonia and I do not think she has been taking it currently. REVIEW OF SYSTEMS: Positive for the history of a heart murmur, MORPHINE AND DEMEROL allergies, anxiety, arthritis, wearing glasses and partial plate dentures. Otherwise, review of systems is negative for some 40 different complaints in 14 different system categories including central nervous system, general, respiratory, cardiovascular, endocrine, gastrointestinal, genitourinary, hematologic, lymphatic, allergic, immunologic, psychiatric, musculoskeletal, skin, eyes, ears, nose, mouth, and throat. Please see review of system form for details and negatives in review of systems. SOCIAL HISTORY: She is . Does not smoke or drink or use illegal drugs. She quit smoking 3 years ago. FAMILY HISTORY: As described above. Mother and father and sister all have had coronary artery disease. PHYSICAL EXAMINATION: GENERAL: She presents as a well-developed, well-nourished white female, in no acute distress. VITAL SIGNS: Pulse was 54 and regular, blood pressure was 155/53, respirations of 14 and regular, temperature is 97.5. HEENT: Her head was atraumatic. Eyes clear. NECK: Supple. There is no jugular venous distention or hepatojugular reflux. Thyroid is not enlarged. There is no adenopathy. SKIN: Warm and dry. Mucous membranes are moist. LUNGS: Clear to auscultation and percussion. HEART: Revealed normal first and second heart sounds and a soft S4. There is no S3. There are no murmurs, rubs, thrills, heaves or gallops. PMI is nondisplaced. ABDOMEN: Soft, flat. There is right upper quadrant tenderness. There are no palpable masses. There is no organomegaly. EXTREMITIES: Reveal no cyanosis, clubbing or edema. NEUROLOGIC: The patient mentated normally, talked normally and moved all extremities normally. I do not believe she has had a chest x-ray. Her EKG showed sinus bradycardia from today with VPCs, heart rate was 45 and borderline repolarization abnormalities. On her monitor, she does have rate-related left bundle branch block. IMPRESSION: [place] [address] CONSULTATION Name: ANDREWDAVIDJOE Room: [address] IN ..#: [id number] Admission: 11/16/18 Attend Phys: Jarret Taylor, Discharge: Date of : 41 Report #: [id number] 1. Acute cholecystitis with cholelithiasis and bile duct obstruction. 2. Paroxysmal atrial fibrillation. 3. Coronary artery disease. 4. Status post myocardial infarction. 5. Status post cardiac arrest. 6. Peripheral artery disease. 7. Carotid vascular disease. 8. Chronic diastolic dysfunction. 9. Essential hypertension. 10. Hypercholesterolemia. 11. Tvk-cgfdjcp-pguldagcz diabetes mellitus. 12. Ventricular premature contractions. 13. Rate-related left bundle branch block. RECOMMENDATION: She will need her Eliquis stopped 2 days before her surgery and then resumed as soon as possible following her surgery, hopefully, in the next day or perhaps if there is no bleeding risk, the evening after the surgery, but the next day would be fine. Additionally, she needs a preoperative evaluation with stress test and carotid Dopplers. She does need an echo. Her echo from September does show mild concentric left ventricular hypertrophy, left ventricular ejection fraction of 60-65%. The left atrium was severely dilated. There was moderate mitral stenosis with a gradient of 8.5 mm. There was mild mitral regurgitation, mild aortic valve sclerosis without stenosis. There was mild grade 1 diastolic dysfunction. Given her vascular issues, she is at least a moderate risk from the surgical point of view. Thank you very much for asking me to see this patient. If there are any questions, please feel free to contact me. By: [phone]. Jesus Mora MD, FACC /nt
[2018-11-16 10:16] VITALS: BP 168/64
[2018-11-16 10:36] LABS: URINE BILIRUBIN NEGATIVE (Negative); URINE BLOOD NEGATIVE (Negative); URINE CLARITY CLEAR; URINE COLOR YELLOW; URINE GLUCOSE-RANDOM NEGATIVE (Negative); URINE KETONES NEGATIVE (Negative); URINE LEUKOCYTES-REFLEX NEGATIVE (Negative); URINE NITRITE-REFLEX NEGATIVE (Negative); URINE PROTEIN NEGATIVE (Negative); URINE UROBILINOGEN 0.2 E.U./dl (0.2-1.0)
[2018-11-16 10:43] LABS: ABSOLUTE EOSINOPHILS 0.2 thou/uL (0.0-0.7); ABSOLUTE LYMPHOCYTES 1.1 thou/uL (0.8-5.3); ABSOLUTE MONOCYTES 0.9 thou/uL (0.0-1.2); ABSOLUTE NEUTROPHILS 6.4 thou/uL (1.6-8.1); BASOPHILS 0.5 %; EOSINOPHILS 2.3 %; HEMATOCRIT 35.2 % (37.0-47.0); HEMOGLOBIN 11.5 gm/dL (12.0-15.0); LYMPHOCYTES 12.4 %; MCHC 32.6 g/dL (28.0-37.0); MCV 82.7 fL (80.0-100.0); MONOCYTES 10.7 %; NUCLEATED RBCS 0 /100WBC; PLATELET COUNT* 370 thou/uL (150-400); POLYS 74.1 %; RBC 4.25 mil/uL (4.20-5.00); WBC 8.7 thou/uL (4.0-11.0)
[2018-11-16 10:52] LABS: CALCIUM 8.7 mg/dL (8.5-10.1); POTASSIUM 3.5 mmol/L (3.5-5.1)
[2018-11-16 10:57] LABS: ALBUMIN 3.8 g/dL (3.4-5.0); TOTAL BILIRUBIN 0.3 mg/dL (<0.1-1.0); TOTAL PROTEIN 7.1 g/dL (6.4-8.2)
[2018-11-16 15:32] VITALS: BP 148/44
--- NOTE | 2018-11-16 17:18 | NUR ---
DR RITTER GAVE VERBAL TELEPHONE INSTRUCTIONS THAT PATIENT SHOULD BE OFF ELOQUIS FOR 2 DAYS PRIOR TO ANY SCHEDULED SURGERY.
--- NOTE | 2018-11-16 18:53 | NUR ---
VSS-AFEBRILE. LUNGS CLEAR-ROOM AIR. OOB TO USE RESTROOM WITH WALKER, NO DIFFICULTY VOIDING. C/O ABDOMINAL PAIN THAT ISD PARTIALLY RELIEVED WITH PO AND IV MEDICATIONS. TOLERATING CLEAR LIQUID DIET WITH NO REPORTED N/V.
[2018-11-16 20:00] VITALS: BP 154/51
[2018-11-17] VITALS: BP 127/80
[2018-11-17 04:00] VITALS: BP 127/80; BP 155/53
[2018-11-17 04:27] LABS: HEMATOCRIT 29.4 % (37.0-47.0); HEMOGLOBIN 9.6 gm/dL (12.0-15.0); MCH 27.6 pg (26.0-34.0); MCHC 32.5 g/dL (28.0-37.0); MCV 84.8 fL (80.0-100.0); MPV 8.3 fl. (7.2-11.1); RBC 3.47 mil/uL (4.20-5.00); RDW-CV 16.6 % (10.5-14.5); WBC 6.1 thou/uL (4.0-11.0)
[2018-11-17 04:56] LABS: CALCIUM 8.4 mg/dL (8.5-10.1); CREATININE 1.1 mg/dL (0.6-1.3); MAGNESIUM 1.9 mg/dL (1.8-2.4); POTASSIUM 3.3 mmol/L (3.5-5.1); TOTAL BILIRUBIN 0.2 mg/dL (<0.1-1.0); TOTAL PROTEIN 5.4 g/dL (6.4-8.2)
--- NOTE | 2018-11-17 05:08 | NUR ---
DR WHEAT NOTIFIED THAT PT HAD AN 8 BEAT RUN OF VTACH, SHE IS ASYMPTOMATIC, RECEIVED ORDERS TO CONSULT CARDIOLOGY AND OBTAIN EKG, CARDIOLOGY HAS ALREADY BEEN CONSULTED AND WILL SEE PT TODAY, EKG PLACED IN CHART FOR CARDIOLOGY REVIEW
[2018-11-17 08:20] VITALS: BP 160/44
--- NOTE | 2018-11-17 11:01 | NUR ---
PER CARDIOLOGY, PATIENT NEEDS STRESS TEST AND CAROTID US PRIOR TO GALL BLADDER SURGERY R/T VESSEL DISEASE AND PREVIOUS POST OPERTIVE TN AT [facility]. CAROTID TO BE COMPLETED TODAY. STRESS TEST IN THE AM. PATIENT EDUCATED ON DIET CHANGE (NO CAFFIENE) AND IS AGREEABLE. NO CAFFIENE SIGN POSTED OUSIDE OF ROOM. PATIENT LAST HAD CAFFIENE AT 0900 WITH BREAKFAST. PATIENT TO BE NPO AFTER MIDNIGHT TONIGHT AND CARDIAC MEDICATIONS WILL NEED TO BE HELD IN AM.
--- NOTE | 2018-11-17 11:20 | EKG ---
[place] [address] ELECTROCARDIOGRAM REPORT Name: JOE MORALES Room: [address] ADM IN M.R.#: [id number] Admission: 11/16/18 Attend Phys: Jarret Taylor, Discharge: Date of : 41 Report #: [id number] THIS REPORT FOR: //name// [facility] Test Date: 2018-11-17 Test Time: 05:14:36 Pat Name: JOE MORALES Department: Room: [address] Gender: F Partridge Farmer: [place] : 1945 Requested By: Jarret Taylor Order Number: [id number] Reading MD: Nikolai Cassidy Measurements Intervals [place] Rate: 45 P: 80 NM: 185 QRS: 14 QRSD: 89 T: 37 QT: 510 QTc: 442 Interpretive Statements Sinus bradycardia Multiple ventricular premature complexes Borderline repolarization abnormality Compared to ECG 10/04/2018 08:04:31 Ventricular premature complex(es) now present Left bundle-branch block no longer present Electronically Signed On 11-17-2018 11:19:46 LEATHER CUTTER by Nikolai Cassidy [email or web address] <ELECTRONICALLY SIGNED> By: Nikolai Cassidy MD, FACC 11/17/18 1119 0514 0514 Nikolai Cassidy MD, [facility] /EPI
[2018-11-17 12:00] VITALS: BP 155/41
[2018-11-17 13:45] LABS: CREATININE 0.9 mg/dL (0.6-1.3); POTASSIUM 3.9 mmol/L (3.5-5.1)
[2018-11-17 16:00] VITALS: BP 111/34
--- NOTE | 2018-11-17 17:22 | NUR ---
PATIENT PAIN STAYED 1-2 IN ABDOMEN TODAY WITHOUT MEDICATION COVERAGE. PATIENT ON LOW FAT DIET WITH NO CAFFIENE FOR STRESS TEST TOMORROW. US CAROTIDS RESULTED HIGH GRADE STENOSIS. PHYSICIAN ACCOUNTING METHODS ANALYST PAGED, VASCULAR CONSULTED. PATIENT DENIES NEW CONCERNS ABOUT PATIENT CARE.
[2018-11-17 19:50] VITALS: BP 145/49
[2018-11-18] VITALS: BP 137/90
[2018-11-18 04:00] VITALS: BP 166/58
--- NOTE | 2018-11-18 05:46 | NUR ---
PT AWAKE MUCH OF THE NIGHT, TAKING PO AND IV PAIN MED FOR CO ABD PAIN WITH FAIR RESULT. UP WITH SBA, WALKER TO BR TO VOID. PT BECAME "WOOZY" ONCE WHEN UP TO BR AFTER RECEIVING PAIN MED AND CO SOA. O2 INCREASED TO 2L NC AND FAN OBTAINED, VS WNL. HAS BEEN NPO SINCE MIDNIGHT FOR STRESS TEST TODAY. TELE SR BBB. REQUESTING IVF TURNED DOWN STATING "MY DR OFFICE TOLD ME TO BE CAREFUL OF HOW MUCH FLUID I GET BECAUSE OF MY HEART". PT RESTING QUIETLY WITHOUT FURTHER COMPLAINTS. CALL LITE IN EASY REACH, BED ALARM ON FOR SAFETY.
[2018-11-18 08:00] VITALS: BP 184/60
[2018-11-18] MEDS ORDERED: NORCO 7.5-3251 EACH PO (11:30)
[2018-11-18 12:07] VITALS: BP 194/69
--- NOTE | 2018-11-18 15:17 | NUR ---
SPOKE TO THE PATIENT TO DISCUSS HER HOME SITUATION, DISCHARGE PLANNING, AND TO INFORM OF THE ROLE OF CM. PATIENT ALERT, ORIENTED, AND INDEPENDENT WITH ADL'S. PATIENT RESIDES AT HOME WITH . PATIENT NORMALLY INDEPENDENT. PATIENT OWNS A WALKER THAT SHE ONLY OCCATIONALLY USES. PATIENT HAS O2 AT HOME PROVIDED BY [facility]. PATIENT HAS A HX OF HH WITH [facility]. PATIENT HAS NO HX OF SNF. PATIENT PLANS TO RETURN HOME AT D/C AND DOES NOT ANTICIPATE ANY D/C PLANNING NEEDS. CM WILL REMAIN AVAILABLE TO ASSIST AND FOLLOW NEEDED.
[2018-11-18 15:52] VITALS: BP 201/67
--- NOTE | 2018-11-18 17:07 | CARDNUC ---
[place] [address] CARDIAC NUCLEAR IMAGING REPORT Name: JOE MORALES Room: [address] IN [facility]#: [id number] Admission: 11/16/18 Attend Phys: Jarret Boston Discharge: Date of : 41 Date of Service: 11/18/18 1706 Report #: [id number] THIS REPORT FOR: //name// APPROVED REPORT Study performed: 11/17/2018 10:32:00 Indication: Dyspnea, Pre-Operative CV evaluation Patient Location: In-Patient Room #: 308 Stress Tech: Malka Rush Stress Nurse: Chari Dozier RN Ht: 5 ft 2 in Wt: 168 lbs BSA: 1.78 m2 HR: 70 bpm BP: 198/85 mmHg BMI: 30.72 Rhythm: NSR, LBBB Medical History Medical History: HTN, Hyperlipidemia, Atrial Fibrillation, Diabetic Noninsulin, SOB, CAD s/p TX, CAD s/p stent, CAD s/p TX, Medications: Sotalol, Losartan Allergies: MORPHINE,SULFA DEMEROL Cardiac Risk Factors: Hyperlipidemia, HTN, SOB, Diabetes (non-insulin) Previous Cardiac Procedures: Myocardial infarction Pretest Chest Pain Characteristics: No chest pain Exercise History: Sedentary Meds Held (24 hrs): Sotalol, Losartan Meds Held (48 hrs): Viagra Resting Data Rest SPECT myocardial perfusion imaging was performed in supine position 30 minutes following the intravenous injection of 10.0 mCi of Tc-99m Sestamibi. Time of rest injection: 12:15 The images were gated to evaluate regional wall motion and calculate left ventricular ejection fraction. Administration Route: IV Administration Site: Left AC Pharmacologic Stress Pharmacologic stress test was performed by injecting Regadenoson 0.4 mg IV push over 10-15 seconds immediately followed by the intravenous injection of 31.2 mCi of Tc-99[place] [address] CARDIAC NUCLEAR IMAGING REPORT Name: ANDREWJOE Room: [address] IN [facility].#: [id number] Admission: 11/16/18 Attend Phys: Jarret Boston Discharge: Date of : 41 Date of Service: 11/18/18 1706 Report #: [id number] Time of stress injection: 13:35 Administration Route: IV Administration Site: Left AC Heart Rate at time of stress injection: 111 bpm. Gated Stress SPECT was performed 40 minutes after stress injection. The images were gated to evaluate regional wall motion and calculate left ventricular ejection fraction. Prone imaging was performed. Stress Test Details Stress Test: Pharmacologic stress testing performed using 0.4 mg of regadenoson per 5 mL given IV over 10 seconds. HR Max Heart Rate (APMHR): 145 bpm Resting HR: 70 bpm Target HR (85% APMHR): 123 bpm Max HR Achieved: 111 bpm % of APMHR: 76 Recovery HR: 73 bpm HR response to stress: Accelerated HR response to stress BP Resting BP: 198/85 mmHg Max BP: 227/88 mmHg Recovery BP: 206/86 mmHg ECG Resting ECG: Sinus Rhythm, LBBB Stress ECG: Sinus Rhythm, LBBB ST Change: None Arrhythmia: None Recovery ECG: Sinus Rhythm, LBBB Recovery ST Change: None Recovery Arrhythmia: None Clinical Reason for Termination: Completed protocol Stress Symptoms: Headache, Abdominal discomfort, Dyspnea The patient tolerated Lexiscan infusion without significant symptoms. Stress ECG Conclusion The baseline 12-lead EKG shows sinus rhythm with left bundle-branch block. EKGs obtained during and post Lexiscan infusion show sinus rhythm with left bundle-branch block. There were no significant [place] [address] CARDIAC NUCLEAR IMAGING REPORT Name: JOE MORALES Room: [address]#: [id number] Admission: 11/16/18 Attend Phys: Jarret Boston Discharge: Date of : 41 Date of Service: 11/18/18 1706 Report #: [id number] Study Quality Study: Good Artifact: Mild Breast artifact Study Data At rest, the left ventricular ejection fraction was 69%.. Post stress, the left ventricular ejection was 65%.. TID = 1.01. Perfusion Perfusion images show a very mild in intensity defect in the distal anterolateral wall that is likely due to breast attenuation artifact. No other significant defects were identified. Wall Motion Normal left ventricular wall motion. Nuclear Conclusion ECG Findings: negative for ischemia Clinical Findings: negative for ischemia Nuclear Findings: negative for ischemia Exercise Capacity: not assessed Left Ventricular Function: normal Risk Study: low Myocardial perfusion images show no defect to suggest infarct or ischemia. Left ventricular systolic function appears normal on gated studies. This is a low risk study. <Conclusion> The baseline 12-lead EKG shows sinus rhythm with left bundle-branch block. EKGs obtained during and post Lexiscan infusion show sinus rhythm with left bundle-branch block. There were no significant stress-induced arrhythmias. <ELECTRONICALLY SIGNED> By: Noble Mar MD, FACC 11/18/18 1706 170 170 Noble Mar MD, FACC /INF
--- NOTE | 2018-11-18 17:25 | NUR ---
PT PROGRESSING TOWARDS GOALS THIS SHIFT. COMPLETED STRESS TEST AND GIVEN THE OK BY DR. GOODE THAT PT IS CLEAR FOR SURGERY TO CAROTIDS AND GALL BLADDER. PT'S APIXIBAN ON HOLD FOR SURGERY, DISCUSSED BLOOD THINNERS WITH CARDIOLOGISTS AND NO NEW ORDERS OBTAINED. PT IS SCHEDULED FOR SURGERY TO RT CAROTID ON SUNDAY. PT IS TO BE NPO AFTER MIDNIGHT SUNDAY NIGHT. PT'S BLOOD PRESSURE ELEVATED TODAY D/T HOLDING MEDICATIONS FOR STRESS TEST AND PAIN. PT'S HOME MED DIURETICS RESTARTED THIS SHIFT WELL. PRN TORADOL HELPS RELIEVE PAIN. PT REQUIRING 2L OXYGEN/NC TO MAINTAIN SATS >92%. ENCOURAGED FREQUENT USE OF IS AND DEEP BREATHS/ COUGH. NO OTHER CONCERNS AT THIS TIME. CLWR. WCTM.
[2018-11-18 20:00] VITALS: BP 162/63
--- NOTE | 2018-11-18 23:31 | NUR ---
INITAL ASSESMENT COMPLETED AT 1999. PT RESTING QIIETLY IN BED AT THAT TIME. PT REPORTED BACK PAIN. PT GIVEN PRN HYDROCODONE WITH GOOD RESULTS. SINUS RHYTHM ON MONITOR. CALL LIGHT IN REACH, PT USING APPROPRIATELY
[2018-11-19 00:15] VITALS: BP 158/60
[2018-11-19 04:00] VITALS: BP 126/57
[2018-11-19 15:35] VITALS: BP 126/40
[2018-11-19 19:32] VITALS: BP 122/74
[2018-11-20] VITALS (14 sets, daily range): BP systolic 120–210; BP diastolic 39–89
--- NOTE | 2018-11-20 00:16 | NUR ---
RECIEVED REPORT AND ASSUMED CARE OF PT AT 1930. PT RESTING IN BED WATCHING TELEVISION AT THAT TIME. DISCUSSED CAROTID ENDARECTOM IN AM. DISCUSSED NPO AFTER MIDNIGHT FOR SURGURY. DISCUSSED TRANSFER TO ICU POST OP. PT VERBALIZED UNDERSTANDING OF ALL TEACHING DONE. CALL LIGHT IN PLACE, PT USING APPROPRIATELY.
[2018-11-20 04:39] LABS: APTT 29.5 Seconds (25.0-31.3); INR 1.1; PROTIME 10.9 Seconds (9.20-11.50)
[2018-11-20 04:44] LABS: CALCIUM 8.6 mg/dL (8.5-10.1); CREATININE 1.2 mg/dL (0.6-1.3); POTASSIUM 3.9 mmol/L (3.5-5.1)
[2018-11-20 04:46] LABS: HEMATOCRIT 29.5 % (37.0-47.0); HEMOGLOBIN 9.5 gm/dL (12.0-15.0); MCH 27.2 pg (26.0-34.0); MCHC 32.1 g/dL (28.0-37.0); MCV 84.6 fL (80.0-100.0); MPV 8.6 fl. (7.2-11.1); RBC 3.49 mil/uL (4.20-5.00); WBC 7.5 thou/uL (4.0-11.0)
--- NOTE | 2018-11-20 06:07 | NUR ---
NO ACUTE CHANGES DURING SHIFT. BLOOD PRESSURE, HEART RATE WITHIN DEFINED LIMITS. PT MAINTAINS O2 SAT > 94% ON O2 AT 2 LITERS. PT AFEBRILE DURING NIGHT. PT NPO AFTER MIDNIGHT FOR CAROTID ENDARECTOMY TODAY.
--- NOTE | 2018-11-20 11:28 | NUR ---
ASSESSMENT COMPLETE. PT ALERT AND ORIENTED X4. PT REPORTS FEELING ANXIOUS FOR SURGERY TODAY. PT GIVEN PAIN MEDICATION FOR CHRONIC BACK PAIN, BLOOD PRESSURE MEDICATIONS GIVEN THIS AM. NPO AT THIS TIME FOR SURGERY. PT IS NSR ON TELE MONITOR. 2L PER NC, PT REPORTS WEARING O2 SINCE HAVING PNEUMONIA IN SEPTEMBER. PT HAS RIGHT AC IV, SALINE LOCKED. SKIN W/D/I, BRUISING AND SCARS NOTED. PT IS UP STANDBY ASSIST. CALL LIGHT WITHIN REACH, WILL CONTINUE PLAN OF CARE
--- NOTE | 2018-11-20 19:36 | NUR ---
RECIEVED REPORT AND ASSUMED CARE OF PT AT 1900. PT NOT VOIDED ALL DAY. BLADDER SCAN SHOWS > 350 IN BLADDER. 16 [place] CATHETER PLACED. ICE PACK TO RIGHT NECK PER ORDERS. INCISION WELL APPROXIMATED. NO SWELLING OR DRAINAGE. CLEAR LIQUID DIET ORDERED. PT DENIES NAUSEA. PT EATING JELLOW AT THIS TIME. CARDENE DRIP REDUCED TO 3 MG/HR TO KEEP SYS BP < 150.
--- NOTE | 2018-11-20 19:40 | NUR ---
BP ELEVATED. PER ART LINE SYSTOLIC BP 210. CARDENE GTT STARTED. PT A/O X'S 4. PT NOT VOIDED. PT BLADDER SCANNED AND 342ML. PT C/O OF MID BACK PAIN. PT RELATES SHE BECOMES VERY ITCHY WITH BENADRYL. DR HALL AND RECEIVED ORDER FOR IV FENTANYL.
--- NOTE | 2018-11-20 23:59 | NUR ---
RECIEVED REPORT AND ASSUMED CARE OF PT AT 1915. PT POST OP RIGHT CAROTID ENDARECTOMY. RIGHT RADIAL ART LINE IN PLACE. PT'S HOB < 30 DEGREES. PT REPORTS NO VOID SINCE 0500. BLADDER SCAN INDICATE > 360 ML IN BLADDER. 16 [place] CATHETER PLACED. CLEAR YELLOW URINE SEEN. > 400 ML OUTPUT WITHIN 10 MINUTES. CARDENE DRIP STOPPED WHEN HS MEDS GIVEN. PT REMAINS OF CARDENE AT THIS TIME. PT GIVEN PRN NORCO WITH HS MEDS WITH GOOD RELIEF. HEART RATE AND BLOOD PRESSURE WITHIN DEFINED LIMITS AT THIS TIME. ICE PACK TO RIGHT SIDE OF NECK. INCISION OPEN TO AIR. NO BLEEDING OR SWELLING NOTED AT SITE. EDGES WELL APROXIMATED.
[2018-11-21] VITALS (7 sets, daily range): BP systolic 101–121; BP diastolic 32–42
[2018-11-21 03:30] LABS: HEMATOCRIT 25.3 % (37.0-47.0); HEMOGLOBIN 8.3 gm/dL (12.0-15.0); MCH 27.6 pg (26.0-34.0); MCHC 32.8 g/dL (28.0-37.0); MCV 84.1 fL (80.0-100.0); MPV 8.3 fl. (7.2-11.1); RBC 3.01 mil/uL (4.20-5.00); WBC 9.7 thou/uL (4.0-11.0)
[2018-11-21 03:47] LABS: CALCIUM 8.1 mg/dL (8.5-10.1); CREATININE 0.8 mg/dL (0.6-1.3); MAGNESIUM 1.9 mg/dL (1.8-2.4); POTASSIUM 3.3 mmol/L (3.5-5.1)
--- NOTE | 2018-11-21 05:32 | NUR ---
PT PROGRESSING TOWARD GOALS. PT OFF CARDENE DRIP SINCE 2099. BLOOD PRESSURE WITHIN DEFINED LIMITS. PT'S INCISION SITE WELL APROXIMATED. NO BLEEDING SWELLING OR OOZING NOTED. PT'S PAIN CONTROLLED WITH ORAL MEDICATION. HEAD OF BED MAINTAINED BELOW 30 DEGREES. NO ACUTE CHANGES DURING SHIFT, WILL CONTINUE TO MONITOR.
--- NOTE | 2018-11-21 08:21 | NUR ---
ASSUMED PT CARE 0730. PT A/O X'S 4. VSS. AFEBRILE. POTASSIUM REPLACED. NO C/O PAIN. PT REPORTS FEELING "SORE" AT RIGHT CARDOTID SURGERY SITE.
--- NOTE | 2018-11-21 08:32 | NUR ---
ART LINE DC'D PER PROTOCOL.
--- NOTE | 2018-11-21 10:26 | OP ---
[address] [address] OPERATIVE REPORT Name: JOE MORALES Room: [address] IN M.R.#: [id number] Admission: 11/16/18 Attend Phys: Jarret Taylor, Discharge: Date of : 41 Report #: [id number] THIS REPORT FOR: //name// CC: BETTY physician/PCP Jarret Taylor DATE OF SERVICE: 11/20/2018 PREOPERATIVE DIAGNOSIS: Asymptomatic high-grade right carotid artery stenosis. POSTOPERATIVE DIAGNOSIS: Asymptomatic high-grade right carotid artery stenosis. PROCEDURE: 1. Right carotid endarterectomy with bovine pericardial patch angioplasty. 2. Completion of intraoperative duplex. SURGEON: Alec Rae DO. DIE FINISHER: Lex George, PGY-2. ANESTHESIA: General. ESTIMATED BLOOD LOSS: 150 mL. FLUIDS: 800 mL crystalloid. URINE OUTPUT: None. SPECIMENS: Right carotid plaque. IMPLANT: A 0.8 x 8 bovine pericardial patch in the right carotid artery. FINDINGS: Demonstrated about 80% heavily calcified right carotid bifurcation stenosis. A completion intraoperative duplex demonstrated no intraluminal defects, a good flow through the external and continuous diastolic flow through the internal carotid artery. She awoke neurologically intact in the operating room. CLINICAL HISTORY: The patient is a 73-year-old woman with known asymptomatic high-grade carotid artery stenosis. She is recommended for carotid intervention for stroke risk reduction. DETAILS OF PROCEDURE: After informed consent was obtained, the patient was taken to the operating room and placed in the OR bed in the supine position. She was administered general anesthesia by Anesthesia team. Right neck was prepped and draped in usual sterile fashion. part time receptionist-out was performed [address] [address] OPERATIVE REPORT Name: JOE MORALES Room: [address] IN M.R.#: [id number] Admission: 11/16/18 Attend Phys: Jarret Taylor, Discharge: Date of : 41 Report #: [id number] identifying correct patient and procedure. Next, a longitudinal incision was made along the anterior border of sternocleidomastoid. Dissection was carried down through skin and subcutaneous tissue, both sharp and electrocautery. The carotid sheath was entered. The facial vein was identified, was ligated between 2-0 silk tie and divided. I circumferentially dissected out the common carotid artery controlled with an umbilical tape and Nissa tourniquet. I then dissected out the external carotid and superior thyroid artery and controlled with Silastic vessel loop in Miller fashion. I then dissected out the distal internal carotid artery and controlled with Silastic vessel loop. I then administered 8000 units of intravenous heparin. This was allowed to circulate for 3 minutes. I then sequentially clamped the internal followed by the external common carotid arteries and made a longitudinal arteriotomy extended with Miller scissors. I then placed a 10-Brazilian Bernard shunt in standard fashion. Doppler interrogation confirmed flow through the shunt. I then performed a standard endarterectomy, the eversion endarterectomy of the external carotid artery, detailing good distal endpoint in the internal carotid artery. Freed of all intimal debris. I then flushed with heparinized saline. I then performed a patch angioplasty with a bovine pericardial patch with running 6-0 Prolene suture. Prior to completion of the suture line, the shunt was removed and the carotid was clamped and allowed to form back bleed. I then flushed with heparinized saline. I completed the patch, restored flow first up the external carotid artery and after several heartbeats to the internal carotid artery. At this point, I then performed a completion intraoperative duplex, which again demonstrated no intraluminal defects and good flow through the external and continuous diastolic flow through the internal carotid artery. I then partially reversed the heparin with 50 mg of protamine. Once hemostasis was ensured and the wound was irrigated with antibiotic solution, it was closed in layers with 2-0 and 3-0 Vicryl, 4-0 Monocryl and the skin. Skin was anesthetized with Marcaine anesthetic. Dermabond was applied. All sponge, sharp and instrument counts were reported as correct x 2. She was awakened in the operating room, neurologically intact, moving upper and lower extremities appropriately and taken to recovery room in stable condition. <ELECTRONICALLY SIGNED> By: Alec Rae DO 11/21/18 1026 1443 [id number] Rae DO /nt
--- NOTE | 2018-11-21 16:24 | NUR ---
CATHETER DC'D AT 1500.
--- NOTE | 2018-11-21 16:28 | NUR ---
PT TITRATED TO 2L NC.
[2018-11-22] VITALS: BP 127/34
[2018-11-22 04:00] VITALS: BP 103/49
--- NOTE | 2018-11-22 05:46 | NUR ---
PT SLEPT MOST OF SHIFT. ASSESSMENT DOCUMENTED. MEDS GIVEN PER E-JAN. IV PATENT. PAIN MEDS GIVEN PER E-JAN. PT REFUSED TORSEMIDE THIS SHIFT STATING SHE DID NOT WANT TO BE UP ALL NIGHT PEEING THE BED, THAT SHE NORMALLY TAKES HER 2ND DOSE OF IT AROUND 3PM. PT REMAINED NPO AFTER 0000. WILL CONTINUE WITH PLAN OF CARE.
[2018-11-22 08:00] VITALS: BP 124/32
[2018-11-22 11:45] LABS: HEMOGLOBIN 8.9 gm/dL (12.0-15.0); MCH 27.1 pg (26.0-34.0); MCHC 31.9 g/dL (28.0-37.0); MCV 85.1 fL (80.0-100.0); RBC 3.29 mil/uL (4.20-5.00); RDW-CV 17.3 % (10.5-14.5)
[2018-11-22 11:53] LABS: CALCIUM 8.7 mg/dL (8.5-10.1); CREATININE 0.9 mg/dL (0.6-1.3); MAGNESIUM 1.9 mg/dL (1.8-2.4)
--- NOTE | 2018-11-22 18:21 | NUR ---
SHIFT NOTE - PT RETURNED FROM PACU AROUND 1650. SEE DOCUMENTATION. PT WITH 3 STAB WOUNDS FROM LAP ADWOA WHICH APPEAR WELL APPROXIMATED. PT WITH 3L O2 AND ON CONT PULSE OX PER PACU THROUGH TONIGHT. WILL CONTINUE TO MONITOR.
[2018-11-22 20:56] VITALS: BP 164/54
[2018-11-23 04:28] LABS: HEMATOCRIT 26.3 % (37.0-47.0); MCH 28.8 pg (26.0-34.0); MCHC 34.2 g/dL (28.0-37.0); MCV 84.5 fL (80.0-100.0); RBC 3.11 mil/uL (4.20-5.00); RDW-CV 17.1 % (10.5-14.5); WBC 10.1 thou/uL (4.0-11.0)
--- NOTE | 2018-11-23 04:57 | NUR ---
PATIENT SLEPT WELL DURING THIS SHIFT. PT GIVEN PAIN MEDICATION AT HS. PAT WITH SALINE LOCK IN LT FOREARM. PT WITH THREE ABDOMINAL LAP SITES; C/D/I. PT ON O2 @ 3 LITERS PER NASAL CANNULA. PT ON CAPNO BUT IT DID NOT ALARM ON THIS SHIFT. PT HAS INCISION ON RT CARODID; DSG C/D/I. PT DENIES NEEDS AT THIS TIME. FREQUENTLY USED ITEMS AND CALL LIGHT WITHIN REACH. SIDERAILS UPX2. WILL CONTINUE TO MONITOR.
[2018-11-23 05:14] LABS: CALCIUM 8.6 mg/dL (8.5-10.1); CREATININE 0.7 mg/dL (0.6-1.3); MAGNESIUM 1.9 mg/dL (1.8-2.4); POTASSIUM 4.2 mmol/L (3.5-5.1); TOTAL BILIRUBIN 0.3 mg/dL (<0.1-1.0); TOTAL PROTEIN 5.7 g/dL (6.4-8.2)
[2018-11-23 08:00] VITALS: BP 98/65
[2018-11-23 16:00] VITALS: BP 118/65
[2018-11-24] VITALS: BP 103/25
[2018-11-24 04:20] LABS: HEMATOCRIT 25.4 % (37.0-47.0); HEMOGLOBIN 8.4 gm/dL (12.0-15.0); MCV 84.7 fL (80.0-100.0); MPV 9.1 fl. (7.2-11.1); RDW-CV 17.3 % (10.5-14.5); WBC 8.6 thou/uL (4.0-11.0)
[2018-11-24 04:59] LABS: CALCIUM 8.4 mg/dL (8.5-10.1); CREATININE 0.8 mg/dL (0.6-1.3); POTASSIUM 3.8 mmol/L (3.5-5.1)
[2018-11-24 08:00] VITALS: BP 105/41
[2018-11-24 12:32] VITALS: BP 128/27
[2018-11-24] MEDS ORDERED: COZAAR 50 MG TA50 M1 PO (14:59)
[2018-11-24 15:50] VITALS: BP 128/27
--- NOTE | 2018-11-24 16:35 | NUR ---
DISCHARGE NOTE - PERFORED REST AND EXERCISE O2 SAT. PT WAS 95% ON ROOM AIR. PT AMBULATED AROUND 100 FEET AND O2 SAT DROPPED TO 79%. PLACED PT BACK ON 02 AT REST AND O2 SAT RETURNED TO 96%. DISCUSSED DISCHARGE INSTRUCTIONS WITH PT AND SPOUSE. NO QUESTIONS. IV REMOVED WITHOUT DIFFICULTY. ALL BELONGINGS SENT HOME WITH PT.
--- NOTE | 2018-11-25 10:06 | PATH ---
[facility] [address] [place] [address] PATHOLOGY RPT PROCEDURE Name: JOE VANCE Room: [address] IN M.R.#: [id number] Admission: 11/16/18 Date of : 41 Discharge: 11/24/18 Report #: [id number] Path Case #: [id number] [facility] Accession Number: [id number] . 01 Material submitted: . RIGHT CAROTID PLAQUE . 01 Clinical history: . Right carotid stenosis . 02 Diagnosis: "Right carotid plaque", endarterectomy: - Calcific atherosclerosis. (CLW:jayna; 11/22/2018) QMS/11/22/2018 . 02 Electronically signed: . Adrienne Munson MD, Pathologist NPI- [id number] . 01 Gross description: . Received in formalin labeled "Joe Vance, right carotid plaque," are multiple fragments of yellow-iraheta, rubbery tissue measuring 2.3 x 1.3 x 0.8 cm in aggregate dimensions. Sectioning reveals partially calcified cut surfaces. The specimen is submitted representatively in cassette A1, following decalcification. (DAC; 11/21/2018) XDC/XDC . 02 Pathologist provided ICD-10: I65.21 . 02 CPT . 580003, 942074 Specimen Comment: A courtesy copy of this report has been sent to Specimen Comment: [phone], . Specimen Comment: Report sent to / DR WHEAT Specimen Comment: A duplicate report has been generated due to demographic updates. Performed at: 01 [facility] [address], [place] [id number] MD Larry Fernandez MD Phone: [phone] Performed at: 02 [facility] [address], [place], [place] [id number] MD Neri Burns MD Phone: [phone]
--- NOTE | 2018-11-26 13:21 | PATH ---
[facility] [address] [place] [address] PATHOLOGY RPT PROCEDURE Name: JOE VANCE Room: [address] IN .R.#: [id number] Admission: 11/16/18 Date of : 41 Discharge: 11/24/18 Report #: [id number] Path Case #: [id number] [facility] Accession Number: [id number] . 01 Material submitted: . GALLBLADDER . 01 Clinical history: . Cholelithiasis. . 02 Diagnosis: Gallbladder: - Chronic cholecystitis and cholelithiasis. (JAYJAY:elle; 11/25/2018) MBR/11/25/2018 . 02 Electronically signed: . Neri Burns MD, Pathologist NPI- [id number] . 01 Gross description: . Received in formalin labeled "Joe Vance, gallbladder" is an intact cholecystectomy specimen measuring 6.3 x 3.0 x 1.0 cm. The serosa is iraheta-pink and smooth and the specimen is opened to reveal green velvety mucosa and an average wall thickness of 0.3 cm. Multiple black roughened calculi are present measuring in aggregate 2.5 x 1.5 x 0.4 cm. No polyps or masses are identified. Act English Tutor sections of the fundus and body and the cystic duct margin are submitted in cassette A1. ([facility]; 11/23/2018) SY/SYC . 02 Pathologist provided ICD-10: K80.10 . 02 CPT . 666381 Specimen Comment: A courtesy copy of this report has been sent to Specimen Comment: [phone], . Specimen Comment: Report sent to / DR WHEAT Specimen Comment: A duplicate report has been generated due to demographic updates. Performed at: [address] [facility] [address], [place], [place] [id number] MD Larry Fernandez MD Phone: [phone] Performed at: 02 [facility] [address], [place], [place] [id number] MD Neri Burns MD Phone: [phone]
== END 2018-11-24 16:35 | disposition home or self-care (01) | DRG 37 ==
LOC: M.ERS 10:02 → M.3W 14:39 → M.TBA-ER 14:39 → M.3W 15:37 → M.ICU 11-20 16:03 → M.3W 11-21 19:18
PROVIDERS: Emergency Medicine; Family Medicine; Internal Medicine; Surgery; ADMIT Family Medicine
PROC: 03UH0KZ Supplement Right Common Carotid Artery with Nonautologous Tissue Substitute, Open Approach (ICD-10-PCS; principal; 2018-11-20)
PROC: 03CH0ZZ Extirpation of Matter from Right Common Carotid Artery, Open Approach (ICD-10-PCS; principal; 2018-11-20)
PROC: 0FT44ZZ Resection of Gallbladder, Percutaneous Endoscopic Approach (ICD-10-PCS; 2018-11-22)
PROC: 0WQF4ZZ Repair Abdominal Wall, Percutaneous Endoscopic Approach (ICD-10-PCS; 2018-11-22)
DX: I65.21 Occlusion and stenosis of right carotid artery (principal); J96.00 Acute respiratory failure, unspecified whether with hypoxia or hypercapnia; K80.63 Calculus of gallbladder and bile duct with acute cholecystitis with obstruction; I50.32 Chronic diastolic (congestive) heart failure; I13.0 Hypertensive heart and chronic kidney disease with heart failure and stage 1 through stage 4 chronic kidney disease, or unspecified chronic kidney disease; M19.90 Unspecified osteoarthritis, unspecified site; F41.9 Anxiety disorder, unspecified; F32.9 Major depressive disorder, single episode, unspecified; I48.0 Paroxysmal atrial fibrillation; K42.9 Umbilical hernia without obstruction or gangrene; I44.7 Left bundle-branch block, unspecified; E11.51 Type 2 diabetes mellitus with diabetic peripheral angiopathy without gangrene; I49.3 Ventricular premature depolarization; I25.10 Atherosclerotic heart disease of native coronary artery without angina pectoris; K59.00 Constipation, unspecified; E87.6 Hypokalemia; E11.22 Type 2 diabetes mellitus with diabetic chronic kidney disease; N18.3 Chronic kidney disease, stage 3 (moderate); I48.2 Chronic atrial fibrillation; I05.0 Rheumatic mitral stenosis; J44.9 Chronic obstructive pulmonary disease, unspecified; M51.37 Other intervertebral disc degeneration, lumbosacral region; Z96.653 Presence of artificial knee joint, bilateral; Z86.73 Personal history of transient ischemic attack (TIA), and cerebral infarction without residual deficits; Z98.891 History of uterine scar from previous surgery; Z90.49 Acquired absence of other specified parts of digestive tract; Z98.1 Arthrodesis status; I25.2 Old myocardial infarction; Z87.891 Personal history of nicotine dependence; Z86.74 Personal history of sudden cardiac arrest; Z79.01 Long term (current) use of anticoagulants; Z79.899 Other long term (current) drug therapy; Z88.5 Allergy status to narcotic agent; Z88.2 Allergy status to sulfonamides; Z88.8 Allergy status to other drugs, medicaments and biological substances; Z82.49 Family history of ischemic heart disease and other diseases of the circulatory system

== ENCOUNTER → 2019-03-10 | Outpatient (CLI) | payer OTHER ==
[~2019-03-10] MED LIST changes: +COZAAR 50 MG TA50 M1 PO; +NORCO 7.5-3251 EACH PO
[2019-03-10 11:06] LABS: CREATININE 1.2 mg/dL (0.6-1.3)
== END ==
LOC: M.LAB 10:30 → M.CT 11:30
PROVIDERS: Internal Medicine Cardiovascular Disease
DX: Z01.812 Encounter for preprocedural laboratory examination (principal); J98.4 Other disorders of lung; I25.10 Atherosclerotic heart disease of native coronary artery without angina pectoris; I70.0 Atherosclerosis of aorta; R59.0 Localized enlarged lymph nodes; M47.814 Spondylosis without myelopathy or radiculopathy, thoracic region

== ENCOUNTER 2019-04-13 22:02 | Inpatient (IN) | payer OTHER ==
[~2019-04-13] VITALS: Ht 157.5 cm; Wt 71.7 kg
--- NOTE | ~2019-04-13 | CON ---
[address] [address] CONSULTATION Name: MORALESJOE Room: [address] IN M.R.#: [id number] Admission: 04/13/19 Attend Phys: Thomas Mahan MD Discharge: Date of : 41 Report #: [id number] THIS REPORT FOR: //name// CC: Thomas Lopes Mary DATE OF SERVICE: 04/14/2019 INPATIENT CONSULTATION CHIEF COMPLAINT: Shortness of breath and chest pressure. HISTORY OF PRESENT ILLNESS: The patient is a 74-year-old female with a history of atrial arrhythmia, peripheral vascular disease, had been short of breath for the past month and then yesterday became progressively more short of breath. She presented to the Emergency Room. Initially, it was felt that she might have been having more paroxysms of atrial fibrillation. She presents in a sinus rhythm. She has been compliant with her sotalol and anticoagulation. She had been having palpitations, but they had been more distant than this most recent hospitalization presentation. She has a known history of mitral valve disease. Her last echocardiogram last year demonstrated grossly normal LV systolic function, but a mean gradient of 8.5 mmHg across the calcified mitral valve with reduced excursion was noted. She denies syncope or presyncope. She denies neuro symptoms, slurred speech, numbness, weakness or visual changes. She denies GI or bleeding. She is fully anticoagulated. PAST MEDICAL HISTORY: She has a history of carotid endarterectomy and she became a patient of Dr. Mar after this when she developed symptomatic bradycardia and ultimately her sotalol had to be held, but then was restarted as an outpatient. She has paroxysmal atrial fibrillation. She has the aforementioned mitral valve disease without evidence of aortic valve stenosis on that echocardiogram. She has normal LV systolic function. She has a history of spinal fusion procedure with a complicated postoperative course with respiratory failure and aspiration pneumonia. She has a history of minimal coronary artery disease. She had a heart catheterization at [facility] within the last 3 years according to her daughter who is in Healthcare and this demonstrated apparently no significant coronary artery disease. Records are not available at this time. HOME MEDICATIONS: Include Eliquis 5 mg p.o. b.i.d., clonazepam p.r.n., Zoloft, atorvastatin 40 mg daily, Pletal 100 mg p.o. b.i.d., gabapentin, [place] [address] CONSULTATION Name: JOE MORALES Room: [address] IN [facility]#: [id number] Admission: 04/13/19 Attend Phys: Thomas Mahan MD Discharge: Date of : 41 Report #: [id number] chloride 20 mEq daily and torsemide 20 mg p.o. b.i.d. PAST SURGICAL HISTORY: , D and C 2015, back surgery as noted above, spinal fusion, questionable non-STEMI postoperatively, nerve stimulator, right knee replacement, cholecystectomy. SOCIAL HISTORY: She is a former smoker. She is . ALLERGIES: DEMEROL, MORPHINE, SULFA. SOCIAL HISTORY: She does drink occasionally. FAMILY HISTORY: Valve disease, her mother had bivalvular surgery apparently. REVIEW OF SYSTEMS: GENERAL: No fevers or chills. PULMONARY: Positive dry cough. No hemoptysis. NEUROLOGIC: Denies headache, blurry vision or slurred speech. GASTROINTESTINAL: She has some occasional intermittent dysphagia, but is only with her potassium pills. Otherwise, she is asymptomatic. PULMONARY: No wheezing or cough. CARDIOVASCULAR: Positive chest pain, positive dyspnea with exertion. No orthopnea, no PND. Positive weight gain. NEUROLOGIC: Denies seizures. PHYSICAL EXAMINATION: VITAL SIGNS: Blood pressure is 119/77, pulse 66 in sinus rhythm, temperature 36.6. She does have an oxygen requirement of 4 liters per nasal cannula. GENERAL: This is a pleasant, mildly obese, elderly female. She is alert, oriented, no apparent distress. HEENT: Eyes: EOMs are intact. No facial asymmetry. NECK: Supple, no jugular venous distention. CARDIOVASCULAR: Regular. There is a faint systolic murmur heard at the left upper sternal border. I cannot hear an opening snap. LUNGS: Clear to auscultation. ABDOMEN: Soft, nontender. EXTREMITIES: There is no peripheral edema. NEUROLOGIC: No focal deficits. SKIN: Warm and dry. IMAGING: CT scan of the chest demonstrated no evidence of pulmonary embolus. Chest x-ray showed cardiomegaly, small pleural effusions and some mild CHF. LABORATORY DATA: Hemoglobin is 10.5, white blood counts 10.7, platelet count is 323,000. Sodium 145, potassium is 3.9, chloride 108, CO2 is 26, BUN is 29, creatinine is 1.3. Troponin I is 0.06. BNP [place] 9[address] [address] CONSULTATION Name: JOE MORALES Room: [address] IN M.R.#: [id number] Admission: 04/13/19 Attend Phys: Thomas Mahan MD Discharge: Date of : 41 Report #: [id number] IMPRESSION: 1. Acute diastolic heart failure. She has responded to IV Lasix. We will give her another dose today. She has been compliant with her torsemide diuretic for predominantly right-sided symptoms. 2. Mitral valve stenosis. Given her presentation and history of borderline etsqsuqn-ju-ggztnq mitral valve disease and history of minimal coronary artery disease, I suspect her symptoms could be related to this and rather than proceeding with a diagnostic surface echocardiogram, I recommended a transesophageal echocardiogram for more accurate imaging to determine whether or not her mitral valve disease has progressed. 3. Peripheral vascular disease. 4. Paroxysmal atrial fibrillation. We will continue with sotalol and Eliquis. 5. Numerous narcotic allergies. We will recommend conscious sedation with our Anesthesia colleagues. By: 1210 1858Carlos Brown MD, FACC /nt
[~2019-04-13 22:02] MED LIST changes: -FOLIC ACID 40400 MC1 PO; +FOLIC ACID0.4 MG PO
[2019-04-13 22:11] VITALS: BP 125/71
[2019-04-13 22:34] LABS: ABSOLUTE BASOPHILS 0.1 thou/uL (0.0-0.2); ABSOLUTE EOSINOPHILS 0.4 thou/uL (0.0-0.7); ABSOLUTE NEUTROPHILS 8.3 thou/uL (1.6-8.1); BASOPHILS 0.6 %; EOSINOPHILS 3.6 %; HEMATOCRIT 32.9 % (37.0-47.0); HEMOGLOBIN 10.5 gm/dL (12.0-15.0); LYMPHOCYTES 9.2 %; MCH 26.8 pg (26.0-34.0); MCV 83.9 fL (80.0-100.0); MONOCYTES 9.4 %; MPV 8.2 fl. (7.2-11.1); NUCLEATED RBCS 0 /100WBC; PLATELET COUNT* 323 thou/uL (150-400); POLYS 77.2 %; RBC 3.92 mil/uL (4.20-5.00); WBC 10.7 thou/uL (4.0-11.0)
[2019-04-13 22:40] LABS: ANION GAP 11 mmol/L (7-16); BUN 29 mg/dL (7-18); CALCIUM 8.9 mg/dL (8.5-10.1); CHLORIDE 108 mmol/L (98-107); CO2 26 mmol/L (21-32); CREATININE 1.3 mg/dL (0.6-1.3); GLUCOSE 120 mg/dL (70-99); POTASSIUM 3.9 mmol/L (3.5-5.1); SODIUM 145 mmol/L (136-145)
[2019-04-13 22:54] LABS: ALBUMIN 3.9 g/dL (3.4-5.0); ALKALINE PHOSPHATASE 164 U/L (46-116); SGOT 49 U/L (15-37); SGPT 44 U/L (30-65); TOTAL BILIRUBIN 0.7 mg/dL (<0.1-1.0); TOTAL PROTEIN 7.3 g/dL (6.4-8.2); TROPONIN-I LEVEL <0.06 ng/mL (<0.06)
[2019-04-14 00:30] VITALS: BP 139/79
[2019-04-14 04:00] VITALS: BP 184/57
[2019-04-14 08:00] VITALS: BP 159/52
[2019-04-14 11:46] VITALS: BP 119/77
[2019-04-14] MEDS ORDERED: SORINE 80 MG TA80 M1 PO (13:28)
[2019-04-14 16:09] VITALS: BP 176/53
[2019-04-14 20:00] VITALS: BP 180/73
[2019-04-15] VITALS (12 sets, daily range): BP systolic 113–149; BP diastolic 34–60
[2019-04-15 05:18] LABS: HEMATOCRIT 34.2 % (37.0-47.0); HEMOGLOBIN 11.2 gm/dL (12.0-15.0); MCH 27.6 pg (26.0-34.0); MCHC 32.7 g/dL (28.0-37.0); MCV 84.5 fL (80.0-100.0); MPV 8.6 fl. (7.2-11.1); RBC 4.05 mil/uL (4.20-5.00); RDW-CV 18.3 % (10.5-14.5); WBC 10.1 thou/uL (4.0-11.0)
[2019-04-15 05:30] LABS: ALBUMIN 3.8 g/dL (3.4-5.0); CALCIUM 9.1 mg/dL (8.5-10.1); CREATININE 1.4 mg/dL (0.6-1.3); MAGNESIUM 2.6 mg/dL (1.8-2.4); POTASSIUM 3.2 mmol/L (3.5-5.1); TOTAL BILIRUBIN 0.8 mg/dL (<0.1-1.0); TOTAL PROTEIN 7.2 g/dL (6.4-8.2)
[2019-04-15 10:23] LABS: CALCIUM 9.4 mg/dL (8.5-10.1); CREATININE 1.6 mg/dL (0.6-1.3); POTASSIUM 3.6 mmol/L (3.5-5.1)
--- NOTE | 2019-04-15 14:26 | EKG ---
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 : 1945 Requested By: Asael Torres Order Number: [id number] MD: Carlos Brown Measurements Intervals [place] Rate: 50 P: 95 [place]: 169 QRS: 8 QRSD: 104 T: 115 QT: 527 QTc: 481 Interpretive Statements Sinus rhythm Multiple ventricular premature complexes Abnormal T, consider ischemia, lateral leads Compared to ECG 11/17/2018 05:14:36 T-wave abnormality now present Possible ischemia now present Sinus bradycardia no longer present Electronically Signed On 04-15-2019 14:26:11 CDT by Carlos Brown [email or web address] <ELECTRONICALLY SIGNED> By: Carlos Brown MD, FACC 04/15/19 1426 30 30 Carlos Brown MD, FACC /EPI
--- NOTE | 2019-04-15 14:26 | EKG ---
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 : 1945 Requested By: Tam Sanchez Order Number: [id number] Reading MD: Carlos Brown Measurements Intervals [place] Rate: 51 P: 80 [place]: 162 QRS: 11 QRSD: 97 T: 52 QT: 542 QTc: 500 Interpretive Statements Sinus rhythm Multiple ventricular premature complexes Minimal ST depression, anterolateral leads Borderline prolonged QT interval Compared to ECG 11/17/2018 05:14:36 ST (T wave) deviation now present Sinus bradycardia no longer present Electronically Signed On 04-15-2019 14:26:14 CDT by Carlos Brown [email or web address] <ELECTRONICALLY SIGNED> By: Carlos Brown MD, FACC 04/15/19 1426 2253 2253 Carlos Brown MD, FAC /EPI
--- NOTE | 2019-04-15 14:27 | EKG ---
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1945 Requested By: Tam Sanchez Order Number: [id number] MD: Carlos rBown Measurements Intervals [place] Rate: 61 P: 53 MD: 145 QRS: 9 QRSD: 159 T: -51 QT: 520 QTc: 524 Interpretive Statements Sinus rhythm Atrial premature complexes Left bundle branch block Compared to ECG 11/17/2018 05:14:36 Atrial premature complex(es) now present Left bundle-branch block now present Sinus bradycardia no longer present Ventricular premature complex(es) no longer present Electronically Signed On 04-15-2019 14:27:00 CDT by Carlos Brown [email or web address] <ELECTRONICALLY SIGNED> By: Carlos Brown MD, [facility] 04/15/19 1427 0026 0026 Carlos Brown MD, [facility] /EPI
--- NOTE | 2019-04-15 16:22 | TEE ---
[place] [address] TRANSESOPHAGEAL ECHOCARDIOGRAM Name: MORALESDAVIDJOE Room: [address] IN [facility]#: [id number] Admission: 04/13/19 Attend Phys: Thomas Mahan, Discharge: Date of : 41 Date of Service: 04/15/19 1621 Report #: [id number] THIS REPORT FOR: //name// APPROVED REPORT Study performed: 04/15/2019 15:37:34 EXAM: Transesophageal Echocardiogram Patient Location: In-Patient Room #: 222 Status: routine BSA: 1.90 HR: 60 bpm BP: 126/69 mmHg Rhythm: NSR Other Information Study Quality: Good Indications Mitral stenosis Echo Enhancing Agent Indication: Rule out Shunt Agent(s) / Amount(s) Used: Agitated Saline 10 cc Procedure After obtaining informed consent, patient underwent transesophageal echo in the [employer]. Type of Sedation : Conscious Sedation Sedation was administered by Nina Shetty. Sedation start time: 1534 Case end Time: 1554 Besides Versed and Fentanyl the patient was also given 25mg Benadryl Sedation was achieved intravenously with: Versed (6) Fentanyl (50) Transesophageal probe was inserted and advanced into esophagus without difficulty by Carlos Brown MD, FACC. Echo enhancement indication: R/O Septal defect. Echo enhancement agent administered: Agitated Saline The LICHA was performed without complications. Throughout the procedure, the blood pressure, pulse oximetry, cardiac rhythm, and rate were monitored. The patient tolerated the procedure without adverse effects. Recovery from conscious sedation was uneventful and vital signs were [facility] [address] [place] [address] TRANSESOPHAGEAL ECHOCARDIOGRAM Name: JOE MORALES Room: [address] IN [facility].#: [id number] Admission: 04/13/19 Attend Phys: Thomas Mahan, Discharge: Date of : 41 Date of Service: 04/15/19 1621 Report #: [id number] stable. Left Ventricle The left ventricle is normal size. There is normal LV segmental wall motion. Mild concentric left ventricular hypertrophy. Left ventricular systolic function is normal. The left ventricular ejection fraction is within the normal range. No left ventricle thrombus noted on this study. LVEF is 60-65%. Right Ventricle The right ventricle is normal size. The right ventricular systolic function is normal. Atria Left atrium is dilated. No thrombus is visualized in the left atrium or appendage. Interatrial septum is intact without evidence of ASD or PFO.Negative bubble study. Right atrium is dilated. Aortic Valve Mild aortic valve sclerosis. Aortic valve leaflets are sclerotic with decreased opening. No aortic regurgitation is present. Mild aortic stenosis. Mitral Valve Mitral valve leaflets are thickened. Trace mitral regurgitation. Moderate to severe mitral stenosis. Tricuspid Valve The tricuspid valve is normal in structure. Mild tricuspid regurgitation. Pulmonic Valve The pulmonary valve is normal in structure. There is no pulmonic valvular regurgitation. Great Vessels The aortic root is normal in size. Pericardium There is no pericardial effusion. <Conclusion> LVEF is 60-65%. There is normal [place] [address] TRANSESOPHAGEAL ECHOCARDIOGRAM Name: JOE MORALES Room: [address] IN ..#: [id number] Admission: 04/13/19 Attend Phys: Thomas Mahan, Discharge: Date of : 41 Date of Service: 04/15/191620 Report #: [id number] Mild aortic stenosis. Moderate to severe mitral stenosis. <ELECTRONICALLY SIGNED> By: Carlos Brown MD, FACC 04/15/191620 20 20 Carlos Brown MD, FACC /INF
[2019-04-16] VITALS: BP 129/40
[2019-04-16 04:00] VITALS: BP 153/62
[2019-04-16 05:26] LABS: CALCIUM 9.1 mg/dL (8.5-10.1); CREATININE 1.4 mg/dL (0.6-1.3); POTASSIUM 3.5 mmol/L (3.5-5.1)
[2019-04-16 07:30] VITALS: BP 161/51
[2019-04-16 11:30] VITALS: BP 119/50
[2019-04-16] MEDS ORDERED: METOLAZONE 2.52.5 MG PO (14:37)
[2019-04-16] MEDS ORDERED: NITROGLYCERIN0.4 MG SUBLING (15:15)
[2019-04-16 15:58] VITALS: BP 121/50
[2019-04-16 16:31] VITALS: BP 121/50
--- NOTE | 2019-04-17 07:42 | CON ---
[address] [address] CONSULTATION Name: ANDREWJOE Room: [address] IN M.R.#: [id number] Admission: 04/13/19 Attend Phys: Thomas Mahan MD Discharge: 04/16/19 Date of : 41 Report #: [id number] THIS REPORT FOR: //name// CC: Thomas Lopes [facility] DATE OF SERVICE: 04/15/2019 REQUESTING PHYSICIAN: Dr. Taylor. REASON FOR CONSULTATION: COPD exacerbation, shortness of breath. DISCUSSION: The patient is a pleasant 74-year-old woman who is a former smoker. She does carry diagnosis of COPD, but is not on any regular medications for that at home. She is a former smoker quitting several years ago. She did have full pulmonary function studies done at this facility 3 years ago. At that time, they were consistent with moderate to severe obstructive process. Her FEV1 was 1.17, which was 60% of predicted. Diffusion capacity was severely decreased. She had normal lung volumes. She does tell me that she has never had her lung disease or the breathing test explained to her in the past. Our group has seen her when she has been here in the hospital. Last consult with us was back in September 2018; however, she has seen a variety of other pulmonologists at different times when she has been in other hospitals. She has seen also the Pulmonary Group in [facility] on an outpatient basis. She presented to the ED here on the evening of 04/13/2019. She had been getting progressively more short of breath. This has been going on for several weeks up to a month, then described some chest pressure. She was having some cough and hoarseness, possible wheezing. She has not brought up much in the way of any sputum. Not aware of any fevers, chills or sweats at home. She has been having to sleep with her head elevated. Has had a weight gain at home as well. She was evaluated in the ED. O2 saturations were low, was started on supplemental oxygen. ProBNP was only mildly elevated. Chest x-ray suggested she may have pulmonary edema. CT angiogram was negative for PE. It did show some changes consistent with pulmonary edema. She has been kept on supplemental oxygen, but no scheduled nebulizer treatments, they have been just p.r.n. Has had some diuresis. She has been seen by the inker machine. She has a known history of mitral stenosis. She is scheduled for a LICHA to be done later this afternoon to evaluate the valve in greater detail. She has got a fairly extensive past medical history. Has a history of coronary artery disease and atrial fibrillation. Has been on chronic anticoagulation therapy. Much of the other interventions have been done in the past at [facility]. She has had carotid endarterectomy, which was done in early November of this year. This was followed by laparoscopic [place] [address] CONSULTATION Name: JOE MORALES Room: [address] IN M.R.#: [id number] Admission: 04/13/19 Attend Phys: Thomas Mahan MD Discharge: 04/16/19 Date of : 41 Report #: [id number] cholelithiasis. She also had an umbilical hernia repair. She notes she did require going home with oxygen for a short period of time after that, but was able to stop. She was also given an albuterol inhaler. She has also required surgery to remove an ovarian cyst, right total hip replacement, C-sections, several TIAs in the past, D and C, hypertension. HOME MEDICATIONS: Did not include any inhalers she was using on a regular basis. She had been given the albuterol inhaler as noted. Was on Eliquis, atorvastatin, clonazepam, vitamin B12, folic acid, metformin, losartan, potassium, sotalol, torsemide, p.r.n. tramadol. SOCIAL HISTORY: She is . 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 [facility] [employer] [facility]. Quit smoking several years ago. FAMILY HISTORY: Positive for mitral valve disease in her mother. REVIEW OF SYSTEMS: ROS was done. Note positives above. Generally, appetite has been fairly good. She has had a cough, really not bringing up much mucus, has generally been clear. No fevers. Denies any difficulty swallowing. Her notes she sleeps extremely well at night "very deep," typically does not snore. Has not seen any apneic episodes. She has not awakened coughing, short of breath or gasping for air. With the increased difficulty she has had with her breathing, she has been sleeping in a recliner. Intermittently, she has had a little bit of lower extremity edema. No diarrhea. No syncopal episodes. PHYSICAL EXAMINATION: GENERAL APPEARANCE: A woman who looks her stated age. Her is at the bedside. She is alert, cooperative, able to speak in full sentences. HEENT: Head is normocephalic and atraumatic. Sclerae nonicteric. Mucous membranes are moist. NECK: Negative for adenopathy. No JVD is noted. HEART: Regular rate and rhythm. I do not appreciate an S3. LUNGS: Lung sounds are generally clear. May have a few faint crackles heard in the bases. No wheezing. Excursion is equal. Lung sounds are fairly good. ABDOMEN: Soft, without appreciable hepatosplenomegaly. There is no guarding or rebound tenderness noted. EXTREMITIES: Without edema. No calf tenderness. SKIN: Warm and dry. NEUROLOGIC: She is alert and oriented x 3. LABORATORY AND X-RAY FINDINGS: Films were reviewed. She had a regular chest x-ray done in the ED, followed up by CTA of her chest. No pulmonary emboli were seen. There is some mild mediastinal adenopathy noted, it has been noted previously, overall appears stable to improved, consistent with some mild pulmonary edema. On her chemistry, sodium is 147, potassium 3.6, BUN of 30, [place] [address] CONSULTATION Name: JOE MORALES Room: [address] IN [facility].#: [id number] Admission: 04/13/19 Attend Phys: Thomas Mahan MD Discharge: 04/16/19 Date of : 41 Report #: [id number] creatinine of 1.6, alkaline phosphatase 138. ProBNP on admission was 988. White blood cell count 10,100, hemoglobin 11.2, hematocrit of 34.2, platelets are normal. IMPRESSION: Admitted with complaints of increasing dyspnea/shortness of air, has improved. Suspect it could be multifactorial. Assessing to see how much is cardiac. She does have underlying chronic obstructive pulmonary disease, which appears moderate based on full PFTs done 3 years ago, although she has not been on any regular treatment. Actually, she has surprisingly minimal cough, wheezing at home baseline. Chronic kidney disease could also be a factor with some of her fluid balance. RECOMMENDATIONS: 1. Await LICHA results. 2. Wean O2 as able. 3. She has made an appointment to see one of my associates in our office in April. I encouraged her to keep that appointment. Would probably need followup full PFTs done. Certainly, if it appears at some point a procedure is needed to address her mitral valve, having an accurate assessment of her lung function is imperative. 4. May also need more aggressive bronchodilator therapy. We will evaluate in the future in regards to that. <ELECTRONICALLY SIGNED> By: Angela Armstrong MD 04/17/19 0742 [id number] [id number] Armstrong MD /nt
== END 2019-04-16 17:04 | disposition home or self-care (01) | DRG 291 ==
LOC: M.ERS 22:02 → M.TBA-ER 23:41 → M.2W 23:41
PROVIDERS: Family Medicine; Internal Medicine Cardiovascular Disease; Nurse Practitioner Family; ADMIT Internal Medicine
PROC: B24BZZ4 Ultrasonography of Heart with Aorta, Transesophageal (ICD-10-PCS; principal; 2019-04-15)
DX: I11.0 Hypertensive heart disease with heart failure (principal); I50.31 Acute diastolic (congestive) heart failure; J96.01 Acute respiratory failure with hypoxia; J91.8 Pleural effusion in other conditions classified elsewhere; M19.90 Unspecified osteoarthritis, unspecified site; F41.9 Anxiety disorder, unspecified; I48.0 Paroxysmal atrial fibrillation; I25.10 Atherosclerotic heart disease of native coronary artery without angina pectoris; D64.9 Anemia, unspecified; E87.6 Hypokalemia; I05.0 Rheumatic mitral stenosis; J44.9 Chronic obstructive pulmonary disease, unspecified; F32.9 Major depressive disorder, single episode, unspecified; I73.9 Peripheral vascular disease, unspecified; Z96.653 Presence of artificial knee joint, bilateral; Z90.49 Acquired absence of other specified parts of digestive tract; Z79.84 Long term (current) use of oral hypoglycemic drugs; Z79.899 Other long term (current) drug therapy; Z79.01 Long term (current) use of anticoagulants; Z88.6 Allergy status to analgesic agent; Z98.891 History of uterine scar from previous surgery; Z98.1 Arthrodesis status; Z86.74 Personal history of sudden cardiac arrest; Z88.2 Allergy status to sulfonamides; Z88.8 Allergy status to other drugs, medicaments and biological substances; Z87.891 Personal history of nicotine dependence

== ENCOUNTER → 2019-04-29 | Outpatient (CLI) | payer OTHER ==
[~2019-04-29] MED LIST changes: +METOLAZONE 2.52.5 MG PO; +NITROGLYCERIN0.4 MG SUBLING
[2019-04-29 13:16] LABS: CALCIUM 8.6 mg/dL (8.5-10.1); CREATININE 2.8 mg/dL (0.6-1.3); POTASSIUM 3.5 mmol/L (3.5-5.1)
== END ==
LOC: M.LAB 12:15
PROVIDERS: Registered Nurse
DX: Z12.31 Encounter for screening mammogram for malignant neoplasm of breast (principal); I50.32 Chronic diastolic (congestive) heart failure

== ENCOUNTER → 2019-05-06 | Outpatient (CLI) | payer OTHER ==
[~2019-05-06] MED LIST changes: +ASPIR 8181 MG PO
[2019-05-06 13:25] LABS: CALCIUM 8.8 mg/dL (8.5-10.1); CREATININE 1.2 mg/dL (0.6-1.3); POTASSIUM 4.4 mmol/L (3.5-5.1)
== END ==
LOC: M.LAB 13:06
PROVIDERS: Registered Nurse
DX: I11.0 Hypertensive heart disease with heart failure (principal); I50.32 Chronic diastolic (congestive) heart failure; Z90.49 Acquired absence of other specified parts of digestive tract

== ENCOUNTER → 2019-05-13 | Outpatient (CLI) | payer OTHER ==
[2019-05-13] VITALS (9 sets, daily range): BP systolic 138–173; BP diastolic 44–102
[~2019-05-13] VITALS: Ht 157.5 cm; Wt 71.2 kg
[2019-05-13 09:24] LABS: HEMATOCRIT 32.1 % (37.0-47.0); HEMOGLOBIN 10.5 gm/dL (12.0-15.0); MCH 27.8 pg (26.0-34.0); MCHC 32.8 g/dL (28.0-37.0); MCV 84.9 fL (80.0-100.0); MPV 8.1 fl. (7.2-11.1); RBC 3.79 mil/uL (4.20-5.00); RDW-CV 17.4 % (10.5-14.5)
[2019-05-13 09:27] LABS: ANION GAP 11 mmol/L (7-16); BUN 24 mg/dL (7-18); CALCIUM 9.2 mg/dL (8.5-10.1); CHLORIDE 103 mmol/L (98-107); CO2 27 mmol/L (21-32); CREATININE 1.1 mg/dL (0.6-1.3); GLUCOSE 109 mg/dL (70-99); POTASSIUM 4.2 mmol/L (3.5-5.1); SODIUM 141 mmol/L (136-145)
[2019-05-13 09:30] LABS: APTT 27.3 Seconds (25.0-31.3); PROTIME 10.4 Seconds (9.20-11.50)
[2019-05-13 09:32] LABS: ALBUMIN 3.7 g/dL (3.4-5.0); ALKALINE PHOSPHATASE 142 U/L (46-116); SGOT 35 U/L (15-37); SGPT 27 U/L (30-65); TOTAL BILIRUBIN 0.4 mg/dL (<0.1-1.0); TOTAL PROTEIN 7.1 g/dL (6.4-8.2)
[2019-05-13 09:33] LABS: SERUM ASSESSMENT Clear
[2019-05-13 09:45] LABS: CHOLESTEROL 152 mg/dL (<200); HDL CHOLESTEROL 65 mg/dL (>40); LDL CHOLESTEROL 72 mg/dL (<100); TC:HDL 2.3 Ratio (Not establshd); TRIGLYCERIDE 75 mg/dL (<150); VLDL 15 mg/dL (<40)
--- NOTE | 2019-05-13 10:22 | EKG ---
[place] [address] ELECTROCARDIOGRAM REPORT Name: JOE MORALES Room: [facility]#: [id number] Admission: 05/13/19 Attend Phys: Diane Yu Discharge: Date of : 41 Report #: [id number] THIS REPORT FOR: //name// [facility] Test Date: 2019-05-13 Test Time: 09:13:31 Pat Name: JOE MORALES Department: Room: Gender: F Theology Professor: : 1945 Requested By: Carlos Brown Order Number: [id number] Reading MD: Carlos Brown Measurements Intervals [place] Rate: 50 P: 81 ID: [id number] QRS: 13 QRSD: 99 T: 102 QT: 536 QTc: 489 Interpretive Statements Sinus rhythm Borderline repolarization abnormality Borderline prolonged QT interval Compared to ECG 04/14/2019 00:26:27 Atrial premature complex(es) no longer present Left bundle-branch block no longer present Electronically Signed On 05-13-2019 10:22:10 CDT by Carlos Brown [email or web address] <ELECTRONICALLY SIGNED> By: Carlos Brown MD, [facility] 05/13/19 1022 2 Carlos Brown MD, [facility] /EPI
--- NOTE | 2019-05-13 14:28 | CARD ---
[address] [address] CARDIAC CATH REPORT Name: JOE MORALES [id number] Admission: 05/13/19 Attend Phys: Diane Yu Discharge: Date of : 41 Report #: [id number] THIS REPORT FOR: //name// APPROVED REPORT Study performed: 05/13/2019 10:18:08 Patient Details Patient Status: Out-Patient Room #: The patient is a 74 year-old female Event Personnel Carlos Brown Packer [employer]ausage [employer] Wiener, Chari Dozier RN Tape Keller Operator, Mel Quintana RN Monitor, Hayes Lambert MATERIAL MOVER Scrub Procedures Performed Art Access - R radial artery Left Heart Cath w/or w/o Coronaries Hemostasis with Vascband Indication Valvular heart disease Admission/Lab Medications/Medications given during procedure Heparin Low Molecular Weight Procedure Narrative The patient was brought electively to the Cardiac Catheterization Laboratory and was prepped and draped in a sterile manner. The right wrist was infiltrated with 2% Lidocaine subcutaneous anesthesia. A Slender Glidesheath sheath was inserted into the right radial artery. Coronary angiography was performed using coronary diagnostic catheters. The right coronary system was accessed and visualized with a Diagnostic JR4 catheter. The left coronary system was accessed and visualized with a Oto 4.0 5fr catheter. The left ventricle was accessed and visualized with a Pig 6fr catheter. Left ventriculogram was performed in [place] projection. The patient tolerated the procedure well and there were no complications associated with the procedure. There was no hematoma. Intraoperative Conscious Sedation Sedation start time: 11:00 Case end Time: 11:23 Fentanyl 25 mcg Versed 2 mg Fluoro Time: 9.9 [place] [address] CARDIAC CATH REPORT Name: JOE MORALES Room: [facility]#: [id number] Admission: 05/13/19 Attend Phys: Diane Yu Discharge: Date of : 41 Report #: [id number] Dose: 1089 mGy Contrast Type and Amount: Visipaque 130 ml Diagnostic Cath Left Main normal LAD mid 30-40%, distal 50% Diagonal 1 large ,proximal 30% Circumflex proximal 75% distal LCx small OM1 medium sized, mid body 40% Right Coronary mid body 40% R PDA small normal RPLV medium sized diffuse 50% distally Left Ventriculography The left ventricle is normal in size with normal contractility. The left ventricular ejection fraction is estimated to be 60-65%. Left ventricular wall motion abnormalities are not present. There is no mitral insufficiency. rt dominant , no gradient on pull back, EDP 15 Hemodynamics The aortic pressure is 135/57 mmHg with a mean of 81 mmHg. The left ventricular pressure is 161/10 mmHg with a mean of mmHg. The left ventricular end diastolic pressure is 17 mmHg. Conclusion 1. severe mitral valve steonsis,rheumatic 2. severe cicumflex stenosis 3. Normal LV function, without aortic stenosis Recommendations Valve Surgery CABG <ELECTRONICALLY SIGNED> By: Calros Brown MD, FACC 05/13/19 1428 1428 1428Carlos rBown MD, FACC /INF
== END ==
LOC: M.CL 08:16
PROVIDERS: Internal Medicine Cardiovascular Disease
DX: I25.10 Atherosclerotic heart disease of native coronary artery without angina pectoris (principal); I05.0 Rheumatic mitral stenosis; I11.0 Hypertensive heart disease with heart failure; I50.9 Heart failure, unspecified; I25.2 Old myocardial infarction; I48.91 Unspecified atrial fibrillation; F32.9 Major depressive disorder, single episode, unspecified; M19.90 Unspecified osteoarthritis, unspecified site; F41.9 Anxiety disorder, unspecified; Z86.73 Personal history of transient ischemic attack (TIA), and cerebral infarction without residual deficits; Z96.653 Presence of artificial knee joint, bilateral; Z90.49 Acquired absence of other specified parts of digestive tract; Z98.890 Other specified postprocedural states; Z79.899 Other long term (current) drug therapy; Z79.01 Long term (current) use of anticoagulants; Z88.2 Allergy status to sulfonamides; Z88.8 Allergy status to other drugs, medicaments and biological substances; Z79.82 Long term (current) use of aspirin

== ENCOUNTER → 2019-05-16 | Outpatient (CLI) | payer OTHER ==
[2019-05-16 16:26] LABS: ABSOLUTE EOSINOPHILS 0.3 thou/uL (0.0-0.7); ABSOLUTE MONOCYTES 0.7 thou/uL (0.0-1.2); ABSOLUTE NEUTROPHILS 4.5 thou/uL (1.6-8.1); BASOPHILS 0.7 %; EOSINOPHILS 3.9 %; HEMATOCRIT 30.9 % (37.0-47.0); HEMOGLOBIN 9.9 gm/dL (12.0-15.0); MCH 27.2 pg (26.0-34.0); MONOCYTES 10.5 %; MPV 7.9 fl. (7.2-11.1); NUCLEATED RBCS 0 /100WBC; PLATELET COUNT* 243 thou/uL (150-400); POLYS 68.9 %; RBC 3.64 mil/uL (4.20-5.00); RDW-CV 17.9 % (10.5-14.5); WBC 6.5 thou/uL (4.0-11.0)
[2019-05-16 16:31] LABS: CALCIUM 8.7 mg/dL (8.5-10.1); CREATININE 1.1 mg/dL (0.6-1.3); MAGNESIUM 2.2 mg/dL (1.8-2.4); POTASSIUM 4.2 mmol/L (3.5-5.1)
[2019-05-21 13:08] LABS: ANA INTERPRETATION Negative (Negative)
== END ==
LOC: M.LAB 15:55
PROVIDERS: Internal Medicine Critical Care Medicine
DX: R59.1 Generalized enlarged lymph nodes (principal); I11.0 Hypertensive heart disease with heart failure; I50.32 Chronic diastolic (congestive) heart failure; F32.9 Major depressive disorder, single episode, unspecified

== ENCOUNTER → 2019-08-01 | Outpatient (CLI) | payer OTHER ==
[2019-08-01 13:23] LABS: CALCIUM 8.7 mg/dL (8.5-10.1); CREATININE 1.3 mg/dL (0.6-1.3)
== END ==
LOC: M.LAB 12:41
PROVIDERS: Nurse Practitioner Family
DX: I10 Essential (primary) hypertension (principal)

== ENCOUNTER 2019-09-06 11:00 | Inpatient (IN) | payer OTHER ==
[~2019-09-06] VITALS: Ht 157.5 cm; Wt 73.3 kg
[2019-09-06 11:09] VITALS: BP 137/41
[2019-09-06] MEDS ORDERED: TYLENOL325 MG PO (11:18)
[2019-09-06] MEDS ORDERED: NORVASC 2.5 MG2.5 M1 PO (11:19)
[2019-09-06] MEDS ORDERED: FLORASTOR250 MG PO (11:25)
[2019-09-06] MEDS ORDERED: SORINE 80 MG TA80 MG PO (11:26)
[2019-09-06] MEDS ORDERED: SIMPLY SLEEP (11:27)
[2019-09-06] MEDS ORDERED: SPIRONOLACTONE25 M1 PO (11:27)
[2019-09-06] MEDS ORDERED: ANORO ELLIPTA1 EACH INH (11:28)
[2019-09-06 11:43] LABS: ABSOLUTE EOSINOPHILS 0.1 thou/uL (0.0-0.7); ABSOLUTE LYMPHOCYTES 0.7 thou/uL (0.8-5.3); ABSOLUTE MONOCYTES 1.4 thou/uL (0.0-1.2); ABSOLUTE NEUTROPHILS 8.8 thou/uL (1.6-8.1); BASOPHILS 0.4 %; EOSINOPHILS 0.6 %; HEMATOCRIT 34.1 % (37.0-47.0); HEMOGLOBIN 11.3 gm/dL (12.0-15.0); LYMPHOCYTES 6.6 %; MCH 27.7 pg (26.0-34.0); MCHC 33.1 g/dL (28.0-37.0); MCV 83.6 fL (80.0-100.0); MONOCYTES 12.4 %; NUCLEATED RBCS 0 /100WBC; PLATELET COUNT* 303 thou/uL (150-400); RBC 4.08 mil/uL (4.20-5.00); RDW-CV 19.2 % (10.5-14.5)
[2019-09-06 11:48] LABS: CALCIUM 9.2 mg/dL (8.5-10.1); CREATININE 1.2 mg/dL (0.6-1.3); POTASSIUM 3.3 mmol/L (3.5-5.1)
--- NOTE | 2019-09-06 11:55 | NUR ---
RT AT BEDSIDE ADMINISTERING BREATHING TREATMENT.
[2019-09-06 11:58] LABS: BE 0.2 mmol/L (-2 to +3); PCO2 33.2 mmHg (35.0-45.0); PO2 65.8 mmHg (75.0-100.0); pH 7.466 (7.340-7.450)
[2019-09-06 11:59] LABS: ALBUMIN 3.7 g/dL (3.4-5.0); MAGNESIUM 1.9 mg/dL (1.8-2.4); TOTAL BILIRUBIN 0.6 mg/dL (<0.1-1.0); TOTAL PROTEIN 7.4 g/dL (6.4-8.2)
[2019-09-06 12:06] LABS: INR 1.2
[2019-09-06 13:07] LABS: URINE BILIRUBIN NEGATIVE (Negative); URINE BLOOD NEGATIVE (Negative); URINE CLARITY CLEAR; URINE COLOR YELLOW; URINE GLUCOSE-RANDOM NEGATIVE (Negative); URINE KETONES NEGATIVE (Negative); URINE LEUKOCYTES-REFLEX NEGATIVE (Negative); URINE NITRITE-REFLEX NEGATIVE (Negative); URINE PROTEIN NEGATIVE (Negative); URINE SPECIFIC GRAVITY <= 1.005 (1.005-1.030); URINE UROBILINOGEN 0.2 E.U./dl (0.2-1.0)
[2019-09-06 14:51] VITALS: BP 142/44
[2019-09-06 18:46] LABS: INFLUENZA A ANTIGEN Negative (Negative); INFLUENZA B ANTIGEN Negative (Negative)
[2019-09-06 19:40] VITALS: BP 134/47
[2019-09-07] VITALS: BP 136/49
--- NOTE | 2019-09-07 03:38 | NUR ---
ASSUMED CARE OF PT AT 1900. PT IS ALERT AND ORIENTED. VSS. PERRLA. NO COMPLAINTS OF PAIN. STEADY GAIT. PT IS ON 3 LITERS OF O2. PT IS IN SINUS RYTHM ON THE TELEMETRY. PT IS RESTING COMFORTABLY IN BED. RESPIRATIONS ARE EVEN AND NONLABORED. WILL CONTINUE TO MONITOR PT.
[2019-09-07 04:00] VITALS: BP 127/59
[2019-09-07 05:14] LABS: HEMATOCRIT 34.7 % (37.0-47.0); HEMOGLOBIN 11.2 gm/dL (12.0-15.0); MCHC 32.3 g/dL (28.0-37.0); MCV 83.7 fL (80.0-100.0); MPV 8.2 fl. (7.2-11.1); RBC 4.15 mil/uL (4.20-5.00); RDW-CV 19.7 % (10.5-14.5); WBC 8.3 thou/uL (4.0-11.0)
[2019-09-07 05:24] LABS: ALBUMIN 3.3 g/dL (3.4-5.0); CALCIUM 9.1 mg/dL (8.5-10.1); MAGNESIUM 2.2 mg/dL (1.8-2.4); POTASSIUM 3.6 mmol/L (3.5-5.1); TOTAL BILIRUBIN 0.5 mg/dL (<0.1-1.0); TOTAL PROTEIN 7.2 g/dL (6.4-8.2)
[2019-09-07 08:00] VITALS: BP 148/44; BP 148/68
[2019-09-07 12:11] VITALS: BP 139/55
--- NOTE | 2019-09-07 13:19 | EKG ---
[place] [address] ELECTROCARDIOGRAM REPORT Name: JOE MORALES Room: [address] ADM IN M.R.#: [id number] Admission: 09/06/19 Attend Phys: Elaine Mantilla MD Discharge: Date of : 41 Report #: [id number] THIS REPORT FOR: //name// [facility] ED Test Date: 2019-09-06 Test Time: 11:10:53 Pat Name: JOE MORALES Department: Room: [facility] Gender: F Operating Room Nurse: [place] : 1945 Requested By: Nay Medrano Order Number: [id number] MD: Noble Mar Measurements Intervals [place] Rate: 65 P: 264 AL: 153 QRS: -28 QRSD: 145 T: 120 QT: 472 QTc: 491 Interpretive Statements Sinus or ectopic atrial rhythm Left bundle branch block Compared to ECG 05/13/2019 09:13:31 Ectopic atrial rhythm now present Left bundle-branch block now present Sinus rhythm no longer present Electronically Signed On 09-07-2019 13:19:26 CDT by Noble Mar [email or web address] <ELECTRONICALLY SIGNED> By: Noble Mar MD, FACC 09/07/19 1319 1110 1110 Noble Mar MD, FAC /EPI
[2019-09-07 16:47] VITALS: BP 109/38
--- NOTE | 2019-09-07 18:32 | NUR ---
ASSUME PT CARE AT 0700, PT A&O X4, UP WITH STANDBY, BOTANY TEACHER TRACING SINUS RHYTHM, LS CONT TO HAVE WHEEZING IN BILATERAL BASES, FULL ASSESSMENT CHARTED. PTS AMLODIPINE DISCONTINUED HER DIASTOLIC RUNNING IN 30'S, PT ASYMPTOMATIC. HOURLY ROUNDING COMPLETED.
[2019-09-07 20:00] VITALS: BP 126/40
[2019-09-08] VITALS: BP 145/52
[2019-09-08 04:00] VITALS: BP 148/50
--- NOTE | 2019-09-08 06:57 | NUR ---
ASSUMED CARE OF PT AFTER REPORT AT 1930. PT A&OX4. VSS. PHYSICAL ASSESSMENT COMPLETED AND CHARTED. PT ON O2 AT 2L NC. PT TRACING SR ON TELE. PT UPSTANDBY TO RESTROOM. PT DENIES ANY PAIN OR DISCOMFORT. CALL LIGHT WITHIN REACH.
[2019-09-08 08:00] VITALS: BP 141/59
[2019-09-08 11:54] VITALS: BP 126/39
--- NOTE | 2019-09-08 14:53 | NUR ---
Pt is A&O. Resides at home with her . Independent. Pt wears home o2 at [facility] through [facility]. Spoke with , ex ox ordered to see if Pt needs o2 with activity, updated Yani at [employer] for potential need. Per , anticipate dc to home tomorrow. Goal is home at dc. Following.
[2019-09-08 16:00] VITALS: BP 126/47
--- NOTE | 2019-09-08 18:54 | NUR ---
ASSUMED PT CARE AT 0730. ASSESSMENT COMPLETED CHARTED. ABLE TO MAKE NEEDS KNOWN. UP WITH SBA. NO C/O PAIN OR DISCOMFORT. HAD FAMILY AT BEDSIDE MOST OF THE DAY. RESTING IN BED AT THIS TIME. WILL CONTINUE TO MONITOR.
[2019-09-08 23:04] VITALS: BP 125/50
[2019-09-09] VITALS: BP 117/35
[2019-09-09 04:00] VITALS: BP 136/63
--- NOTE | 2019-09-09 05:27 | NUR ---
VITALS STABLE, AFEBRILE. PATIENT SLEPT THROUGH THE NIGHT. BUMPED UP TO 4L O2 PER NC WHEN SLEEPING. NSR/NORMAL PACO ON THE MONITOR. DENIES PAIN. CALL LIGHT WITHIN REACH.
[2019-09-09 08:00] VITALS: BP 144/60
--- NOTE | 2019-09-09 10:26 | NUR ---
Discussed disposition with Pt, Pt hopeful that she will not need home o2 with activity. Ex ox to be completed today. Anticipate dc. Following.
--- NOTE | 2019-09-09 10:42 | NUR ---
ASSUMED CARE OF PATIENT THIS AM AT 0730. PATIENT IS ALERT AND ORIENTED X 4. SHE DENIES PAIN THIS AM. TELE SHOWS SINUS PACO WITH PACS. O2 SATS LOWER 90'S ON 4 LITERS NC. PATIENT HAS BEEN UP TO THE BR AND IN THE [place] WITH PT TODAY. SHE TOLERATES HER ACTIVITY FAIRLY WELL. PLANS TO DISCHARGE LATER TODAY. PATIENT REMAINS UP IN THE CHAIR AT THIS TIME.
[2019-09-09 11:50] VITALS: BP 114/69
[2019-09-09 16:40] VITALS: BP 116/45
[2019-09-09 20:54] VITALS: BP 127/57
[2019-09-10] VITALS: BP 139/44
[2019-09-10 04:22] VITALS: BP 136/53
--- NOTE | 2019-09-10 05:27 | NUR ---
PT IS ABLE TO COMMUNICATE HER NEEDS TO STAFF EFFECTIVELY. SHE HAS DENIED THE NEED FOR PAIN MEDICATION UP TO THIS TIME. POSSIBLE DISCHARGE LATER TODAY.
[2019-09-10 08:00] VITALS: BP 135/62
[2019-09-10 11:54] VITALS: BP 108/48
--- NOTE | 2019-09-10 12:01 | NUR ---
ASSUMED PT CARE AT 0800, AOX4, UP SBA, USES WALKER, O2 SAT 90'S 4L NC. TRACING SINUS PACO ON TELE. PT DENIES PAIN. LUNG SOUND WHEEZES/CRACKLES. LAST BM 09/08/19. VSS, AM ASSESSMENT CHARTED, MEDS GIVEN PER MAR, CALL LIGHT WITHIN REACH, WILL CONTINUE TO MONITOR.
--- NOTE | 2019-09-10 12:02 | NUR ---
Ex ox completed today, Pt will need home o2. Spoke with Yani at [facility] and faxed, they will have more POCs in stock tomorrow. Anticipate dc to home tomorrow.
[2019-09-10 15:56] VITALS: BP 120/82
[2019-09-10 20:00] VITALS: BP 144/48
[2019-09-11] VITALS (7 sets, daily range): BP systolic 109–142; BP diastolic 39–93
[2019-09-11 05:17] LABS: HEMATOCRIT 34.2 % (37.0-47.0); HEMOGLOBIN 10.8 gm/dL (12.0-15.0); MCH 26.8 pg (26.0-34.0); MCHC 31.6 g/dL (28.0-37.0); MCV 84.6 fL (80.0-100.0); MPV 8.1 fl. (7.2-11.1); RBC 4.04 mil/uL (4.20-5.00); RDW-CV 19.2 % (10.5-14.5); WBC 13.3 thou/uL (4.0-11.0)
--- NOTE | 2019-09-11 05:17 | NUR ---
ASSUMED PATIENT CARE AT 1900. ASSESSMENT COMPLETED CHARTED. VSS. SR/SB ON MONITOR. HOURLY ROUNDING IN PLACE FOR PATIENT SAFETY. CLWR.
[2019-09-11 05:38] LABS: ALBUMIN 3.3 g/dL (3.4-5.0); CALCIUM 9.6 mg/dL (8.5-10.1); CREATININE 1.3 mg/dL (0.6-1.3); POTASSIUM 3.2 mmol/L (3.5-5.1); TOTAL BILIRUBIN 0.2 mg/dL (<0.1-1.0); TOTAL PROTEIN 6.6 g/dL (6.4-8.2)
--- NOTE | 2019-09-11 13:27 | NUR ---
Pt not discharging to home today. Cm updated Yani at [facility], plan to deliver Inogen tomorrow. Following.
--- NOTE | 2019-09-11 15:33 | NUR ---
ASSUMED PT CARE AT 0800, AOX4, UP SBA, USES WALKER, O2 SAT 90'S 2L NC, TRACING SINUS PACO ON TELE. PT DENIES PAIN. LUNG SOUND WHEEZES/CRACKLES. LAST BM 09/08/19. ON ELECTROLYTE PROTOCOL. VSS, AM ASSESSMENT CHARTED, MEDS GIVEN PER MAR, CALL LIGHT WITHIN REACH, WILL CONTINUE TO MONITOR
[2019-09-12] VITALS: BP 143/55
[2019-09-12 04:00] VITALS: BP 171/61
--- NOTE | 2019-09-12 05:37 | NUR ---
PT SLEPT MOST OF SHIFT. ASSESSMENT DOCUMENTED. MEDS GIVEN PER E-MAR. IV PATENT. NO REPORTS OF PAIN OR NAUSEA. PT REPORTED HER MOUTH BEING SORE AND IRRITATED, DR NOTIFIED, ORDERS RECIEVED. WILL CONTINUE WITH PLAN OF CARE.
[2019-09-12] MEDS ORDERED: PREDNISONE 10 M10 M1 PO (10:55)
[2019-09-12] MEDS ORDERED: LEVAQUIN 750 M750 MG PO (10:55)
--- NOTE | 2019-09-12 11:05 | NUR ---
Pt discharging to home today. CM updated Yani with [facility] to deliver Pt's Inogen between 1230-130 today prior to dc. Updated nurse.
[2019-09-12 12:08] VITALS: BP 119/42
--- NOTE | 2019-09-12 17:45 | NUR ---
ASSUMED PT CARE AT 0700, PT A&O X4, REMAINS ON 2LPM VIA NC, LS CONT TO HAVE WHEEZING IN BILATERAL LOBES, PT DENIES ANY PAIN OR SOA, RISK MODELER TRACING SINUS PACO, FULL ASSESSMENT CHARTED. PT DISCHARGED AT APPROX 1730 WITH , EDUCATED ON ALL DISCHARGE INSTRUCTIONS INCLUDING MEDICATIONS AND FOLLOW UP APPOINTMENTS. IV AND RISK MODELER REMOVED, HOURLY ROUNDING COMPLETED.
== END 2019-09-12 17:20 | disposition home or self-care (01) | DRG 177 ==
LOC: M.ERS 11:00 → M.TBA-ER 13:20 → M.2W 13:20
PROVIDERS: Personal Emergency Response Attendant; ADMIT Internal Medicine
DX: J15.6 Pneumonia due to other Gram-negative bacteria (principal); J96.21 Acute and chronic respiratory failure with hypoxia; I50.22 Chronic systolic (congestive) heart failure; J44.1 Chronic obstructive pulmonary disease with (acute) exacerbation; G45.9 Transient cerebral ischemic attack, unspecified; J44.0 Chronic obstructive pulmonary disease with (acute) lower respiratory infection; M19.90 Unspecified osteoarthritis, unspecified site; F41.9 Anxiety disorder, unspecified; F32.9 Major depressive disorder, single episode, unspecified; I73.9 Peripheral vascular disease, unspecified; I11.0 Hypertensive heart disease with heart failure; Z96.653 Presence of artificial knee joint, bilateral; I05.0 Rheumatic mitral stenosis; R00.1 Bradycardia, unspecified; T50.905A Adverse effect of unspecified drugs, medicaments and biological substances, initial encounter; Y92.89 Other specified places as the place of occurrence of the external cause; Z86.73 Personal history of transient ischemic attack (TIA), and cerebral infarction without residual deficits; I25.2 Old myocardial infarction; Z90.49 Acquired absence of other specified parts of digestive tract; Z88.6 Allergy status to analgesic agent; Z88.8 Allergy status to other drugs, medicaments and biological substances; Z87.891 Personal history of nicotine dependence

== ENCOUNTER → 2020-04-28 | Outpatient (CLI) | payer OTHER ==
[~2020-04-28] MED LIST changes: +ANORO ELLIPTA1 EACH INH; +FLORASTOR250 MG PO; +NORVASC 2.5 MG2.5 M1 PO; +PREDNISONE 10 M10 M1 PO; +SIMPLY SLEEP; +SORINE 80 MG TA80 MG PO; +SPIRONOLACTONE25 M1 PO; +TYLENOL325 MG PO
[2020-04-28 10:55] LABS: CREATININE 1.1 mg/dL (0.6-1.3)
== END ==
LOC: M.LAB 10:00 → M.CT 11:00
PROVIDERS: ATTEND Internal Medicine Pulmonary Disease
DX: J43.8 Other emphysema (principal); I70.0 Atherosclerosis of aorta; I25.10 Atherosclerotic heart disease of native coronary artery without angina pectoris; R91.8 Other nonspecific abnormal finding of lung field

== ENCOUNTER → 2021-08-16 | Outpatient (CLI) | payer OTHER | LOC: M.CT 07-13 14:00 | PROVIDERS: ATTEND Internal Medicine Pulmonary Disease | DX: J98.4 Other disorders of lung (principal); J43.8 Other emphysema; J90 Pleural effusion, not elsewhere classified; I25.10 Atherosclerotic heart disease of native coronary artery without angina pectoris; M47.814 Spondylosis without myelopathy or radiculopathy, thoracic region; M47.812 Spondylosis without myelopathy or radiculopathy, cervical region; M48.02 Spinal stenosis, cervical region; M19.019 Primary osteoarthritis, unspecified shoulder; R91.8 Other nonspecific abnormal finding of lung field ==